=== PATIENT | female | born 1935 | race African-American/Black ===

== ENCOUNTER 2021-04-07 15:34 | Emergency (ER) | payer MEDICARE, MEDICAID, SELFPAY ==
[2021-04-07] VITALS (18 sets, daily range): BP systolic 118–173; BP diastolic 77–104; PULSE 58–91; RESP 11–22; TEMP 36.4; O2SAT 95–100
--- NOTE | ~2021-04-07 | XR_ITS ---
XR chest 1V portable 04/07/2021 17:47 Indication: Weakness. Procedure: AP portable chest Comparison: No prior studies for comparison. Findings: There is right paratracheal soft tissue with smooth curvilinear lateral margin, likely vasc ular ectasia. There is atherosclerosis and ectasia of the thoracic aorta. Mild cardiomegaly. No focal air space disease, pulmonary edema, pleural effusion or suspected pneumothorax. Impression: 1: No acute cardiopulmonary disease. Reviewed, dictated and finalized at location A. Impression: 1: No acute cardiopulmonary disease.
--- NOTE | 2021-04-07 15:40 | ECG_ITS ---
Measurements Intervals [place] Rate: 63 P: 85 WI: 235 QRS: -29 QRSD: 79 T: 55 QT: 417 QTc: 428 Interpretive Statements SINUS RHYTHM WITH MARKED SINUS ARRHYTHMIA WITH FIRST DEGREE AV BLOCK NON-CONDUCTED PREMATURE ATRIAL COMPLEXES BASELINE ARTIFACT- I, II, III, AVR, AVL ABNORMAL ECG Electronically Signed On 04-07-2021 16:48:43 CDT by Abel Jernigan D.O.
[2021-04-07 17:11] LABS: Basophils Percent Auto 0.7 % (0.2-1.2); Eosinophils Absolute Auto 0.1 K/mm3 (0-0.3); Eosinophils Percent Auto 3.2 % (0-4.4); Hematocrit 41.3 % (37.0-47.0); Hemoglobin 12.9 g/dL (12.0-15.0); Lymphocytes Absolute Auto 2.32 K/mm3 (0.9-3.2); Lymphocytes Percent Auto 57.4 % (18.3-44.2); Mean Corpuscular HGB Conc 31.2 g/dl (32-36); Mean Corpuscular Hemoglobin 27.6 pg (26-34); Mean Corpuscular Volume 88.2 fl (80-100); Mean Platelet Volume 9.7 fl (7.4-10.4); Monocytes Absolute Auto 0.3 K/mm3 (0.1-0.6); Monocytes Percent Auto 7.2 % (2.6-8.5); Neutrophils Absolute Auto 1.3 K/mm3 (1.3-6.7); Neutrophils Percent Auto 31.5 % (45.5-73.1); Platelet Count Result 289 k/mm3 (150-375); Red Blood Count 4.68 M/mm3 (4.2-5.4)
[2021-04-07 17:30] LABS: Alanine Aminotransferase 12 U/L (4-35); Albumin Level 4.2 g/dL (3.5-5.1); Alkaline Phosphatase 132 U/L (38-126); Anion Gap 9 mmol/L (8-16); Aspartate Amino Transferase 20 U/L (14-36); Bilirubin,Total 0.7 mg/dL (0.2-1.3); Blood Urea Nitrogen 14 mg/dL (7-17); Calcium 9.7 mg/dL (8.4-10.2); Carbon Dioxide 29 mmol/L (22-30); Chloride 103 mmol/L (98-107); Estimated Glomerular Filt Rate > 60; Glucose 82 mg/dL (65-110); Potassium 3.9 mmol/L (3.4-5.0); Sodium 141 mmol/L (137-145)
[2021-04-07 18:00] LABS: Add Urine Microscopic? YES; Appearance Urine Clear (Clear); Bilirubin Urine Negative (Negative); Blood Urine Negative (Negative); Color Urine Yellow (Yellow); Glucose Urine UA Negative (Negative); Ketones Urine Trace mg/dL (Negative); Leukocyte Esterase Ur Negative LEU/UL (Negative); Mucus Urine Rare /lpf; Nitrate Urine Negative (Negative); Protein Urine Negative (Negative); Specific Grav Ur 1.016 (1.001-1.035); Squamous Epithelial Cell Urine Rare /hpf (Few)
--- NOTE | 2021-04-07 18:57 | ED.GENADULT ---
HPI - General Adult General Chief complaint: Syncope Stated complaint: syncope Time Seen by Provider: 04/07/21 15:57 History of Present Illness HPI narrative: Patient is an 85-year-old female who presents ER with weakness and near syncope. Patient has dementia and is alert and oriented x1 at baseline. She follows commands. No reports of trauma or injury from the longterm. Review of Systems Review of Systems: ROS unobtainable: Yes unobtainable due to mental status PMFSH Past Medical History Medical History (Updated 04/07/21 @ 19:19 by Jagjit Dill MD) Dementia Depressive disorder Hyperlipidemia Type 2 diabetes mellitus Surgical History Surgical History (Updated 04/07/21 @ 19:05 by Jagjit Dill MD) Surgical history unknown Social History Social History (Updated 04/07/21 @ 19:06 by Jagjit Dill MD) Smoking status: Unknown if ever smoked Alcohol intake: never Exam Narrative: GENERAL: Chronically ill-appearing, well-nourished, and in no acute distress. HEAD: Normocephalic, atraumatic. EYES: PERRL and EOMI. ENT: Mucous membranes moist. CHEST: Clear to auscultation. No respiratory distress. HEART: Regular rate and rhythm. Normal peripheral pulses. ABDOMEN: Soft, nontender, nondistended. EXTREMITIES: Normal range of motion. No edema. SKIN: Warm, dry, no rash. NEURO: Cranial nerves II through XII intact. No upper or lower extremity drift. Alert and oriented x1. Course Course Emergency Course: Unremarkable evaluation. Patient able to ambulate without issue. Discharge back to longterm. Vital Signs Vital signs: Vital Signs Temperature 97.5 F L 04/07/21 15:38 Pulse Rate 58 L 04/07/21 15:38 Respiratory Rate 12 04/07/21 15:38 Blood Pressure 173/91 H 04/07/21 15:38 Pulse Oximetry 95 04/07/21 15:38 Temperature 97.5 F L 04/07/21 15:38 Pulse Rate 71 04/07/21 17:00 Respiratory Rate 16 04/07/21 17:00 Blood Pressure 139/84 04/07/21 16:17 Pulse Oximetry 99 04/07/21 16:17 Medical Decision Making Vital Signs Vital Signs: Vital Signs Temperature 97.5 F L 04/07/21 15:38 Pulse Rate 58 L 04/07/21 15:38 Respiratory Rate 12 04/07/21 15:38 Blood Pressure 173/91 H 04/07/21 15:38 Pulse Oximetry 95 04/07/21 15:38 Temperature 97.5 F L 04/07/21 15:38 Pulse Rate 71 04/07/21 17:00 Respiratory Rate 16 04/07/21 17:00 Blood Pressure 139/84 04/07/21 16:17 Pulse Oximetry 99 04/07/21 16:17 Lab Data Result diagrams: 04/07/21 17:05 04/07/21 17:05 Labs: Lab Results 04/07/21 04/07/21 04/07/21 Range/Units 17:05 17:05 17:41 WBC 4.0 L (4.5-10.0) K/mm3 RBC 4.68 (4.2-5.4) M/mm3 Hgb 12.9 (12.0-15.0) g/dL Hct 41.3 (37.0-47.0) % MCV 88.2 (80-100) fl MCH 27.6 (26-34) pg MCHC 31.2 L (32-36) g/dl RDW 15.0 H (11.5-14.5) % Plt Count 289 (150-375) k/mm3 MPV 9.7 (7.4-10.4) fl Immature Gran % (Auto) 0.0 (0-0.5) % Neut % (Auto) 31.5 L (45.5-73.1) % Lymph % (Auto) 57.4 H (18.3-44.2) % [place] % (Auto) 7.2 (2.6-8.5) % Eos % (Auto) 3.2 (0-4.4) % Baso % (Auto) 0.7 (0.2-1.2) % Lymph # (Auto) 2.32 (0.9-3.2) K/mm3 [place] # (Auto) 0.3 (0.1-0.6) K/mm3 Eos # (Auto) 0.1 (0-0.3) K/mm3 Baso # (Auto) 0.0 (0.0-0.1) K/mm3 Abs Immat Gran (auto) 0.00 (0.00-0.031) K/mm3 Absolute Neuts (auto) 1.3 (1.3-6.7) K/mm3 Absolute Nucleated RBC 0.0 (0.0-0.012) K/mm3 Nucleated RBC % 0.0 (0.0-0.2) % Sodium 141 (137-145) mmol/L Potassium 3.9 (3.4-5.0) mmol/L Chloride 103 (98-107) mmol/L Carbon Dioxide 29 (22-30) mmol/L Anion Gap 9 (8-16) mmol/L BUN 14 (7-17) mg/dL Creatinine 0.90 (0.7-1.0) mg/dL Estim Creat Clear Calc Not Reportable Estimated GFR > 60 (59 - ) Glucose 82 (65-110) mg/dL Calcium 9.7 (8.4-10.2) mg/dL Total Bilirubin 0.7 (0.2-1.3) mg/dL AST 20 (14-36) U/L ALT
--- NOTE | 2021-04-07 19:44 | PC.NURSE ---
made contact with [facility] to transfer pt to [facility] in [place]. eta [phone]
== END 2021-04-07 22:15 ==
PROVIDERS: Emergency Provider Emergency Medicine
DX: R53.1 Weakness (principal); F03.90 Unspecified dementia, unspecified severity, without behavioral disturbance, psychotic disturbance, mood disturbance, and anxiety; E78.5 Hyperlipidemia, unspecified; E11.9 Type 2 diabetes mellitus without complications; R94.31 Abnormal electrocardiogram [ECG] [EKG]
CPT/HCPCS: 36415; 51701; 71045; 80053; 81001; 85025; 93005; 99283

== ENCOUNTER 2021-04-12 12:03 | Inpatient (IN) | payer MEDICARE, MEDICAID, SELFPAY ==
[2021-04-12] VITALS (13 sets, daily range): BP systolic 119–154; BP diastolic 70–88; PULSE 83–90; RESP 14–20; TEMP 36.3–37.1; O2SAT 96–99
--- NOTE | ~2021-04-12 | CT_ITS ---
EXAMINATION: CT brain wo con EXAM DATE: 04/12/2021 14:55 INDICATION: Altered mental status, garbled speech. TECHNIQUE: Spiral CT of the head was performed without contrast. Axial, coronal and sagittal images were reviewed. The dose-length product (DLP) for this examination was 832.33 mGy-cm. Vertex was scan fei twice. The exposure was tailored according to patient size, and iterative reconstruction (ASIR) w as used as additional dose reduction technique. There is no prior study for comparison. FINDINGS: Study is limited due to patient motion. There is moderate microangiopathy and cerebral atro phy. No acute intracranial hemorrhage, obstructive hydrocephalus, extra-axial collections or brain ma ss identified. No definite acute infarction. Sinuses and mastoid air cells are well aerated. IMPRESSION: Limited exam demonstrating age-related intracranial findings. Reviewed, dictated and finalized at location A.
--- NOTE | ~2021-04-12 | XR_ITS ---
EXAMINATION: XR chest 1V portable EXAM DATE: 04/12/2021 12:34 INDICATION: Altered mental status, weakness, no appetite. TECHNIQUE: Portable AP frontal chest x-ray was obtained. Comparison is made to prior examination from 04/07/2021. FINDINGS: The lungs are clear. There are no pleural effusions. Cardiac silhouette is prominent but magnified on this AP technique. There is no pneumothorax suspected. The bones and soft tissues are unremarkable. There is tortuosity of the aorta. Possible sliding gastroesophageal hiatal hernia. IMPRESSION: No acute cardiopulmonary findings. Reviewed, dictated and finalized at location A.
--- NOTE | ~2021-04-12 | XR_ITS ---
EXAMINATION: XR abdomen/kub 1V INDICATION: Left ureteral stone TECHNIQUE: Supine views of the abdomen were obtained on 2 radiographs. COMPARISON: CT from yesterday FINDINGS: A 1.8 cm stone projects in the expected location of the left renal pelvis. There is a 2 mm stone in the left kidney lower pole. There is a 3 mm stone in the upper pole of the right kidney. No additional urolithiasis is identified. The bowel gas pattern is normal. A moderate volume of stool is noted in the rectum. There is mild osteoarthritis of the hips. IMPRESSION: 1. 1.8 cm stone in the left renal pelvis. 2. Bilateral nephrolithiasis. Reviewed, dictated and finalized at location B.
--- NOTE | ~2021-04-12 | CT_ITS ---
EXAMINATION: CT abdomen pelvis wo con DATE: 04/12/2021 23:01 INDICATION: Abdominal and flank pain, hematuria TECHNIQUE: Computed tomography (CT) of the abdomen and pelvis was performed without intravenous contr ast. Automated exposure control and iterative reconstruction technique were employed. Exam dose: 318 .88 mGy-cm total exam DLP. COMPARISON: None. FINDINGS: Discoid atelectasis and/or scarring in the lower lung rocha, most prominent in the lower l obes. Mild cardiomegaly. No pericardial or pleural effusion. No hepatic space-occupying mass lesion is evident on this limited noncontrast examination with arms o verlying the abdomen and pelvis, detracting from image quality. The gallbladder is present. No gallbl adder wall thickening or bile duct dilatation is evident. Splenic size is within normal limits. There appears to be up to 2.5 cm left adrenal mass lesion. No apparent right adrenal mass lesion. Approximately 2.7 x 4.7 mm nonobstructing upper pole right renal calculus. Approximately 4 x 5 mm nonobstructing lower pole left renal calculus. There is severe left hydronephrosis and left pelviectasis and proximal ureterectasis secondary to an approximately 8.8 x 11.9 x 17 mm proximal left ureteral calculus (1318 Hounsfield units). No right ureteral calculus or right-sided hydroureteronephrosis. There is prominent diffuse thickening of the urinary bladder wall. Cystitis is not excluded. Prominent rectosigmoid fecal impaction, measuring up to 9.4 cm transverse and 8 cm AP dimension. Diverticulosis of the colon; no CT evidence of diverticulitis. No bowel obstruction or intraperitonea l free air is evident. Up to approximately 3.4 cm infrarenal abdominal aortic aneurysm and calcification and ectasia of the common iliac arteries. No intraperitoneal or retroperitoneal or pelvic mass lesion or adenopathy or ascites is noted otherwi se. Severe degenerative changes of the thoracic and lumbar spine. Grade 1 anterolisthesis at L4-5 due to degenerative change at the apophyseal joints. IMPRESSION: Huge 8.8 x 11.9 x 17 mm proximal left ureteral calculus with severe left pelviectasis an d hydronephrosis Bilateral nonobstructive nephrolithiasis Diffuse thickening and urinary bladder wall; consider cystitis Up to 3.4 cm infrarenal abdominal aortic aneurysm Diverticulosis of the colon Approximately 2.5 cm left adrenal mass lesion is suspected Rectosigmoid fecal impaction Reviewed, dictated and finalized at Location A. Reviewed, dictated and finalized at location A. IMPRESSION: Huge 8.8 x 11.9 x 17 mm proximal left ureteral calculus with sever e left pelviectasis and hydronephrosis Bilateral nonobstructive nephrolithiasis Diffuse thickening and urinary bladder wall; consider cystitis Up to 3.4 cm infrarenal abdominal aortic aneurysm Diverticulosis of the colon Approximately 2.5 cm left adrenal mass lesion is suspected Rectosigmoid fecal impaction
--- NOTE | ~2021-04-12 | XR_ITS ---
EXAMINATION: XR retrograde pyelo w/stent LT EXAM DATE: 04/14/2021 16:03 INDICATION: Left-sided retrograde pyelogram, stent placement. TECHNIQUE: Fluoroscopy used during XR retrograde pyelo w/stent LT performed by Dr. Robert Alvarez MD, urologist. The radiologist Andrew Richards M.D. dictating this report of the image(s) available wa s not present for the procedure. Total fluoroscopic time of 120 seconds The DAP for this procedure was 1.1 mGym2. A total of 66 images sent to PACS from the exam. Cine run(s) available for review. Correlation was made with CT abdomen pelvis 04/12/2021. 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 Upon retrograde injection, there is severe left hydronephrosis demonstrated the left ureter is tortuous. A double-J ureteral stent was placed. Correlate with procedure note. IMPRESSION: Large left mid ureteral stone, severe hydronephrosis. Stent in position. Reviewed, dictated and finalized at location A. IMPRESSION: Large left mid ureteral stone, severe hydronephrosis. Stent in posi tion.
--- NOTE | 2021-04-12 12:17 | ECG_ITS ---
Measurements Intervals [place] Rate: 90 P: 80 MO: 200 QRS: -28 QRSD: 77 T: 77 QT: 340 QTc: 418 Interpretive Statements SINUS RHYTHM BORDERLINE T WAVE ABNORMALITY- HIGH LATERAL LEADS BASELINE ARTIFACT- I, III, AVL, AVF, V2 BORDERLINE ECG Electronically Signed On 04-12-2021 13:36:00 CDT by Abel Jernigan D.O.
--- NOTE | 2021-04-12 12:58 | ED.AMS ---
HPI - Altered Mental Status General Chief Complaint: Altered Mental Status Stated Complaint: AMS Time Seen by Provider: 04/12/21 12:09 Source: EMS, RN notes reviewed and old records reviewed Mode of arrival: EMS Limitations: dementia History of Present Illness HPI narrative: This is an 85 year old female with history dementia who presents from alf for altered mental status. EMS states they were called because patient is not eating , drinking or taking her medication for 2-3 days. It is reported that patient is normally alert and oriented to person. EMS states patient seems to be her baseline. EMS also states on arrival they initially were going to keep patient at alf for antibiotics but family requested that patient be transferred. Related Data Allergies Allergy/AdvReac Type Severity Reaction Status Date / Time hydrochlorothiazide Allergy Unknown Verified 04/12/21 17:47 meperidine Allergy Unknown Verified 04/12/21 17:48 moxifloxacin Allergy Unknown Verified 04/12/21 17:48 oxycodone Allergy Unknown Verified 04/12/21 17:49 penicillamine Allergy Unknown Verified 04/12/21 17:49 Penicillins Allergy Unknown Verified 04/12/21 17:48 Review of Systems Review of Systems: ROS unobtainable: Yes unobtainable due to mental status PMFSH Past Medical History Medical History (Updated 04/12/21 @ 20:36 by Vangie Sneed MD) Dementia Depressive disorder Hyperlipidemia Type 2 diabetes mellitus Surgical History Surgical History (Updated 04/07/21 @ 19:05 by Jagjit Dill MD) Surgical history unknown Social History Social History (Updated 04/07/21 @ 19:06 by Jagjit Dill MD) Smoking status: Unknown if ever smoked Alcohol intake: never Exam Const: General: no acute distress and alert Nutritional Appearance: thin Other: patient responded to name, mumbling speech, extremely dry mouth HENMT: Mouth: Yes dry mucous membranes Eyes: Pupils: Equal, round and reactive pupils present EOM: EOMs intact bilaterally Resp: Effort & Inspection: normal respiratory effort and no retractions Auscultation: clear to auscultation bilaterally Cardio: Rate: regular rate Heart sounds: Murmur heart sound present GI: GI Palp: Yes Soft to palpation, No Tenderness to palpation present (GI) and No Guarding due to palpation present (GI) Auscultation: normal bowel sounds Neuro: General: moves all extremities Extrem: General: no pedal edema Psych: Affect: normal affect Course Reevaluation(s) Reevaluation #1: Patient found to be extremely dehydrated with UTI And PINEDA. She has been given IVF and IV antibiotics. Per old records patient is ambulatory. Today she has been alert and responds to her name. I discussed case with Bridget PIERRE on for hospitalist and she accepts patient to service. Date: 04/12/21 Time: 17:30 Vital Signs Vital signs: Vital Signs Temperature 98.4 F 04/12/21 12:21 Pulse Rate 87 04/12/21 12:21 Respiratory Rate 19 04/12/21 12:21 Blood Pressure 122/75 04/12/21 12:21 Pulse Oximetry 96 04/12/21 12:21 Temperature 97.3 F L 04/12/21 18:29 Pulse Rate 89 04/12/21 19:15 Respiratory Rate 17 04/12/21 19:15 Blood Pressure 154/82 H 04/12/21 19:15 Pulse Oximetry 99 04/12/21 19:15 MDM - Altered Mental Status Differential Diagnosis Differential diagnosis: Likely altered mental status, delirium, dementia, hyponatremia, subarachnoid hemorrhage and sepsis Medical Records Attestation: I reviewed the patient's medical records. Lab Data Attestation: I reviewed the patient's lab results. Result diagrams: 04/12/21 12:36 04/12/21 16:04 Labs: Lab Results 04/12/21 04/12/21 04/12/21 Range/Units 12:36 12:36 13:24 WBC 7.4 (4.5-10.0) K/mm3 RBC 4.70 (4.2-5.4) M/mm3 Hgb 12.9 (12.0-15.0) g/dL Hct 39.6 (37.0-47.0) % MCV 84.3 (80-100) fl MCH 27.4 (26-34) pg MCHC 32.6 (32-36)
[2021-04-12 13:04] LABS: INR 1.1
[2021-04-12 13:05] LABS: Partial Thromboplastin Time 35.9 SECONDS (22.3-36.8)
[2021-04-12 13:07] LABS: Basophils Percent Auto 0.1 % (0.2-1.2); Hematocrit 39.6 % (37.0-47.0); Hemoglobin 12.9 g/dL (12.0-15.0); Immature Granulocyte Absolute 0.03 K/mm3 (0.00-0.031); Immature Granulocyte Percent A 0.4 % (0-0.5); Lymphocytes Absolute Auto 1.04 K/mm3 (0.9-3.2); Lymphocytes Percent Auto 14.1 % (18.3-44.2); Mean Corpuscular HGB Conc 32.6 g/dl (32-36); Mean Corpuscular Hemoglobin 27.4 pg (26-34); Mean Corpuscular Volume 84.3 fl (80-100); Mean Platelet Volume 10.2 fl (7.4-10.4); Monocytes Absolute Auto 0.9 K/mm3 (0.1-0.6); Monocytes Percent Auto 11.5 % (2.6-8.5); Neutrophils Absolute Auto 5.5 K/mm3 (1.3-6.7); Neutrophils Percent Auto 73.9 % (45.5-73.1); Platelet Count Result 267 k/mm3 (150-375); Red Cell Distribution Width 14.7 % (11.5-14.5); White Blood Count 7.4 K/mm3 (4.5-10.0)
[2021-04-12] MEDS: SODIUM CHLORIDE 0.9% IV 1,000 ML 999 ML IV CONT ×2 (13:29→17:55)
[2021-04-12 14:19] LABS: Mucus Urine Few /lpf; RBC Urine >75 /hpf (0-2); Squamous Epithelial Cell Urine Moderate /hpf (Few); WBC Clumps Urine Present /HPF; WBC Urine >75 /hpf
[2021-04-12 14:22] LABS: Add Urine Microscopic? YES; Appearance Urine Turbid (Clear); Bilirubin Urine Negative (Negative); Blood Urine 1+ (Negative); Color Urine Yellow (Yellow); Glucose Urine UA Negative (Negative); Ketones Urine Negative (Negative); Leukocyte Esterase Ur 2+ LEU/UL (Negative); Nitrate Urine Negative (Negative); Protein Urine 2+ mg/dL (Negative); Urobilinogen Urine Negative mg/dL (<2.0)
[2021-04-12 16:52] LABS: Alanine Aminotransferase 13 U/L (4-35); Albumin Level 3.7 g/dL (3.5-5.1); Alkaline Phosphatase 104 U/L (38-126); Anion Gap 7 mmol/L (8-16); Aspartate Amino Transferase 21 U/L (14-36); Bilirubin,Total 0.9 mg/dL (0.2-1.3); Blood Urea Nitrogen 31 mg/dL (7-17); Calcium 9.4 mg/dL (8.4-10.2); Carbon Dioxide 29 mmol/L (22-30); Chloride 109 mmol/L (98-107); Estimated CRCL calculation 19 ml/min; Estimated Glomerular Filt Rate 44; Glucose 121 mg/dL (65-110); Magnesium 2.3 mg/dL (1.6-2.3); Potassium 4.1 mmol/L (3.4-5.0); Sodium 145 mmol/L (137-145)
--- NOTE | 2021-04-12 19:40 | ADMGEN ---
This patient, Sridevi Mckinney, was admitted to Medical Room 346-01. Patient/family oriented to hospital policies and general routines including ID bracelet, bed and alarms, visiting hours, pain management, procedures, bathroom and other care routines, personal items, smoking policy, room service/diet, and visiting hours. Information on how to activate the Rapid Response Team has been discussed. Patient/Family are encouraged to report perceived risks to care and to ask questions if they do not understand what they are told or what they should do.
[2021-04-12] MEDS: SODIUM CHLORIDE 0.9% IV 1,000 ML 125 ML IV CONT (19:52)
--- NOTE | 2021-04-12 21:00 | PM.IMHP ---
H&P: HPI History of Present Illness Date/Time: 04/12/21 21:00 Chief Complaint: Not eating or drinking for 2 days. Narrative: This is a an 85-year-old female with dementia, hypertension, diabetes, and hypothyroidism who presented to the emergency department earlier today via EMS from [facility] for evaluation as she has not been eating or drinking for the past 2 days. The patient typically goes to [facility] and I have not been able to reach her emergency contacts and as such the following history is limited to a review of her electronic medical records and paperwork that accompanied her. It is noted that the patient was seen in the emergency department this facility last week on 04/07/2021 for evaluation of weakness and near syncope. Her workup was essentially normal and she was discharged back to the snf. Unfortunately her condition has continued to decline and she has not been eating or drinking. She has become increasingly more confused as well and is really not even communicating. She is quite dehydrated on exam and she now has evidence of urinary tract infection as well as increasing BUN and creatinine. At the time my evaluation she is alert and she does attempt to answer some questions however she mumbles and I am not able to understand what she is saying. Review of Systems Review of Systems: Unable to assess given current clinical condition. ON LICENSE OF [facility] Past Medical History Medical History (Updated 04/12/21 @ 22:27 by Bridget Anderson PA-C) Anxiety Asthma Dementia Depressive disorder History of seizure History of thyrotoxicosis Hyperlipidemia Hypertension Hypothyroidism Type 2 diabetes mellitus Vitamin D deficiency Surgical History Surgical History Surgical history unknown Family History Family History Other Unknown family medical history Social History Social History (Updated 04/12/21 @ 22:21 by Bridget Anderson PA-C) Social History: Power of employee benefits attorney: Porter Bettencourt, friend. Code status: Full code. Smoking status: Unknown if ever smoked Alcohol intake: unknown Substance use: unknown Additional living arrangements comments: The patient is currently at [facility]. Meds Home Medications and Allergies Home Medications Medication Instructions Recorded Confirmed Type Lactobacillus acidophilus 1 cap PO BID 04/12/21 04/12/21 History acetaminophen 650 mg PO Q6H PRN 04/12/21 04/12/21 History albuterol sulfate [Ventolin HFA] 2 puff INHALATION Q4-6H PRN 04/12/21 04/12/21 History amlodipine 2.5 mg PO DAILY 04/12/21 04/12/21 History aspirin 81 mg PO DAILY 04/12/21 04/12/21 History atorvastatin 10 mg PO HS 04/12/21 04/12/21 History buspirone 7.5 mg PO BID 04/12/21 04/12/21 History cholecalciferol (vitamin D3) 2,000 unit PO DAILY 04/12/21 04/12/21 History [Vitamin D3] cyanocobalamin (vitamin B-12) 1,000 mcg PO DAILY 04/12/21 04/12/21 History docusate sodium 100 mg PO BID 04/12/21 04/12/21 History donepezil [Aricept] 10 mg PO HS 04/12/21 04/12/21 History famotidine 20 mg PO DAILY 04/12/21 04/12/21 History ferrous sulfate 325 mg PO BID 04/12/21 04/12/21 History hydrocodone-acetaminophen 1 tablet PO TID PRN 04/12/21 04/12/21 History methimazole 10 mg PO DAILY 04/12/21 04/12/21 History ondansetron HCl [Zofran] 4 mg PO Q6H PRN 04/12/21 04/12/21 History quetiapine 12.5 mg PO BID 04/12/21 04/12/21 History Allergies Allergy/AdvReac Type Severity Reaction Status Date / Time hydrochlorothiazide Allergy Unknown Verified 04/12/21 21:15 meperidine Allergy Unknown Verified 04/12/21 21:15 moxifloxacin Allergy Unknown Verified 04/12/21 21:15 oxycodone Allergy Unknown Verified 04/12/21 21:15 penicillamine Allergy Unknown Verified 04/12/21 21:15 Penicillins Allergy Unknown Verified 04/12/21 21:15 Vital Signs Vital Signs - 24 hr 04/12/21 12:21 11
[2021-04-12 22:05] LABS: Glucose Point of Care 103 mg/dl (65-105)
[2021-04-12 22:47] LABS: Creatine Kinase 54 U/L (30-135)
[2021-04-12 23:14] LABS: Free T4 Free Thyroxine 1.22 ng/mL (0.78-2.19)
[2021-04-13] VITALS (7 sets, daily range): BP systolic 107–139; BP diastolic 46–98; PULSE 70–75; RESP 16–20; TEMP 36.1–37.1; O2SAT 94–100; BMI 22.6
[2021-04-13 05:50] LABS: Alanine Aminotransferase 12 U/L (4-35); Albumin Level 2.9 g/dL (3.5-5.1); Alkaline Phosphatase 85 U/L (38-126); Anion Gap 8 mmol/L (8-16); Aspartate Amino Transferase 20 U/L (14-36); Bilirubin,Total 0.6 mg/dL (0.2-1.3); Blood Urea Nitrogen 25 mg/dL (7-17); Calcium 8.9 mg/dL (8.4-10.2); Carbon Dioxide 23 mmol/L (22-30); Chloride 116 mmol/L (98-107); Estimated CRCL calculation 30 ml/min; Estimated Glomerular Filt Rate > 60; Glucose 106 mg/dL (65-110); Potassium 3.9 mmol/L (3.4-5.0); Sodium 147 mmol/L (137-145)
[2021-04-13 05:53] LABS: Basophils Percent Auto 0.4 % (0.2-1.2); Eosinophils Percent Auto 0.2 % (0-4.4); Hematocrit 36.6 % (37.0-47.0); Hemoglobin 11.1 g/dL (12.0-15.0); Immature Granulocyte Absolute 0.02 K/mm3 (0.00-0.031); Immature Granulocyte Percent A 0.4 % (0-0.5); Lymphocytes Absolute Auto 0.86 K/mm3 (0.9-3.2); Lymphocytes Percent Auto 17.8 % (18.3-44.2); Mean Corpuscular HGB Conc 30.3 g/dl (32-36); Mean Corpuscular Hemoglobin 27.6 pg (26-34); Mean Platelet Volume 10.3 fl (7.4-10.4); Monocytes Absolute Auto 0.6 K/mm3 (0.1-0.6); Neutrophils Absolute Auto 3.3 K/mm3 (1.3-6.7); Neutrophils Percent Auto 69.2 % (45.5-73.1); Platelet Count Result 236 k/mm3 (150-375); Red Blood Count 4.02 M/mm3 (4.2-5.4); Red Cell Distribution Width 15.2 % (11.5-14.5); White Blood Count 4.8 K/mm3 (4.5-10.0)
[2021-04-13] MEDS: SODIUM CHLORIDE 0.9% IV 1,000 ML 75 ML IV CONT ×2 (06:35→17:58)
[2021-04-13 08:08] LABS: Glucose Point of Care 92 mg/dl (65-105)
--- NOTE | 2021-04-13 09:25 | PM.IMPN ---
Progress Note: A&P Assessment and Plan (1) Acute metabolic encephalopathy: Code(s): G93.41 - Metabolic encephalopathy Status: Acute Assessment and Plan: reported that she has not been eating or drinking Been more confused than baseline UA suspicious for UTI Turbid, 2+ protein, 1+ blood, leukocyte esterase 2+, WBC >75, WBC in clumps Ceftriaxone 1gm q24hr Strict I&Os Urinary catheter Urine culture pending Abd/Pel CT found a stone in the left pelviectasis with diffuse bladder wall thickening. (2) Urinary tract infection: Code(s): N39.0 - Urinary tract infection, site not specified Status: Acute Assessment and Plan: UA suspicious for UTI Turbid, 2+ protein, 1+ blood, leukocyte esterase 2+, WBC >75, WBC in clumps Ceftriaxone 1gm q24hr Strict I&Os Urinary catheter Urine culture pending Abd/Pel CT found a stone in the left pelviectasis with diffuse bladder wall thickening. (3) Hydronephrosis: Code(s): N13.30 - Unspecified hydronephrosis Status: Acute Assessment and Plan: Abd/Pel CT found: Huge 8.8 x 11.9 x 17 mm proximal left ureteral calculus with severe left pelviectasis and hydronephrosis, Diffuse bladder wall thickening Urinary catheter Urology consult Thank you for your help Ceftriaxone (4) Acute kidney injury: Code(s): N17.9 - Acute kidney failure, unspecified Status: Acute Assessment and Plan: BUN/Cr elevated from baseline Probably from poor PO intake and dehydration Related to cystitis and hydronephrosis Trend labs Fluids for hydration (5) Dehydration: Code(s): E86.0 - Dehydration Status: Acute Assessment and Plan: See above (6) Hypertension: Code(s): I10 - Essential (primary) hypertension Status: Acute Assessment and Plan: BP stable at 139/98 Continue home amlodipine 2.5mg PO daily Trend BP Adjust medications as needed (7) Dementia: Code(s): F03.90 - Unspecified dementia without behavioral disturbance Status: Acute Assessment and Plan: Continue home medications (8) Thyroid disorder: Code(s): E07.9 - Disorder of thyroid, unspecified Status: Acute Assessment and Plan: TSH 1.130 Free T4 1.22 Time Spent With Patient Time with patient: Greater than 35 minutes Subjective Date/time seen: 04/13/21924 Interval history: Date/Time: 04/12/21 21:00 Narrative: This is a an 85-year-old female with dementia, hypertension, diabetes, and hypothyroidism who presented to the emergency department earlier today via EMS from [facility] for evaluation as she has not been eating or drinking for the past 2 days. The patient typically goes to [facility] and I have not been able to reach her emergency contacts and as such the following history is limited to a review of her electronic medical records and paperwork that accompanied her. It is noted that the patient was seen in the emergency department this facility last week on 04/07/2021 for evaluation of weakness and near syncope. Her workup was essentially normal and [facility] Unfortunately her condition has continued to decline and she has not been eating or drinking. She has become increasingly more confused as well and is really not even communicating. She is quite dehydrated on exam and she now has evidence of urinary tract infection as well as increasing BUN and creatinine. At the time my evaluation she is alert and she does attempt to answer some questions however she mumbles and I am not able to understand what she is saying. Date/Time 04/13/21924 Patient seems to be very sweet. She talks very low and it is really hard to understand her. I did kind of make out that she is having some flank pain bilaterally, along with urgency and frequency. She denied chest pa
--- NOTE | 2021-04-13 09:25 | P.PNIM_ITS ---
Progress Note: A&P Assessment and Plan (1) Acute metabolic encephalopathy: Code(s): G93.41 - Metabolic encephalopathy Status: Acute Assessment and Plan: * reported that she has not been eating or drinking * Been more confused than baseline * UA suspicious for UTI Turbid, 2+ protein, 1+ blood, leukocyte esterase 2+, WBC >75, WBC in clumps * Ceftriaxone 1gm q24hr * Strict I&Os * Urinary catheter * Urine culture pending * Abd/Pel CT found a stone in the left pelviectasis with diffuse bladder wall thickening. (2) Urinary tract infection: Code(s): N39.0 - Urinary tract infection, site not specified Status: Acute Assessment and Plan: * UA suspicious for UTI Turbid, 2+ protein, 1+ blood, leukocyte esterase 2+, WBC >75, WBC in clumps * Ceftriaxone 1gm q24hr * Strict I&Os * Urinary catheter * Urine culture pending * Abd/Pel CT found a stone in the left pelviectasis with diffuse bladder wall thickening. (3) Hydronephrosis: Code(s): N13.30 - Unspecified hydronephrosis Status: Acute Assessment and Plan: * Abd/Pel CT found: Huge 8.8 x 11.9 x 17 mm proximal left ureteral calculus with severe left pelviectasis and hydronephrosis, Diffuse bladder wall thickening * Urinary catheter * Urology consult Thank you for your help * Ceftriaxone (4) Acute kidney injury: Code(s): N17.9 - Acute kidney failure, unspecified Status: Acute Assessment and Plan: * BUN/Cr elevated from baseline * Probably from poor PO intake and dehydration * Related to cystitis and hydronephrosis * Trend labs * Fluids for hydration (5) Dehydration: Code(s): E86.0 - Dehydration Status: Acute Assessment and Plan: * See above (6) Hypertension: Code(s): I10 - Essential (primary) hypertension Status: Acute Assessment and Plan: * BP stable at 139/98 * Continue home amlodipine 2.5mg PO daily * Trend BP * Adjust medications as needed (7) Dementia: Code(s): F03.90 - Unspecified dementia without behavioral disturbance Status: Acute Assessment and Plan: * Continue home medications (8) Thyroid disorder: Code(s): E07.9 - Disorder of thyroid, unspecified Status: Acute Assessment and Plan: * TSH 1.130 * Free T4 1.22 Time Spent With Patient Time with patient: Greater than 35 minutes Subjective Date/time seen: 04/13/21 0925 Interval history: Date/Time: 04/12/21 21:00 Narrative: This is a an 85-year-old female with dementia, hypertension, diabetes, and hypothyroidism who presented to the emergency department earlier today via EMS from [facility] for evaluation as she has not been eating or drinking for the past 2 days. The patient typically goes to [facility] and I have not been able to reach her emergency contacts and as such the following history is limited to a review of her electronic medical records and paperwork that accompanied her. It is noted that the patient was seen in the emergency department this facility last week on 04/07/2021 for evaluation of weakness and near syncope. Her workup was essentially normal and she was discharged back to the senior living. Unfortunately her condition has continued to decline and she has not been eating or drinking. She has become increasingly more confused as we
--- NOTE | 2021-04-13 10:06 | PCSTNOTE ---
Please refer to the Bedside Swallow Evaluation in the EMR. Please note, silent aspiration cannot be ruled out at bedside.
[2021-04-13 11:44] LABS: Glucose Point of Care 85 mg/dl (65-105)
--- NOTE | 2021-04-13 14:30 | PC.NURSE ---
This nurse attempted to place a urinary catheter, patient was kicking her legs trying to grab at the nurse and catheter. This nurse notified Ramses the hospitalist and made him aware that it couldn't be placed at this time.
--- NOTE | 2021-04-13 16:28 | WPDURCON ---
Assessment and Plan Assessment and plan (1) Hydronephrosis: Code(s): N13.30 - Unspecified hydronephrosis Status: Acute Assessment and Plan: I had a long discussion with her son today we discussed the option of treating her infection and seeing how she responds, or taking her to the OR to place a stent for now, treat infection and then plan to do a left ESWL when her infection resolves. He elects the procedure. He will be giving oral consent. Obtain consent: Cystoscopy, left ureteroscopy with stent placement, left retrograde pyelogram. Plan to go to the OR tomorrow with Dr. Alvarez. Keep NPO after midnight. (2) Acute UTI: Code(s): N39.0 - Urinary tract infection, site not specified Status: Acute Assessment and Plan: Continue IV antibiotics and tailor to culture results. (3) Left ureteral stone: Code(s): N20.1 - Calculus of ureter Status: Acute Urology Consult Note HPI Date Seen: 04/13/21 Requesting Physician: Sinan Hazel MD Primary Care Provider: UNKNOWN,DOCTOR Consult Narrative Narrative: Sridevi Mckinney is a 85 year old female who presented to the ER yesterday with worsening weakness confusion and decreased responsiveness. Her WBC is 4.8, creatinine is 1.00, UA is positive for infection and a urine culture is pending. She is currently on IV ceftriaxone. We were consulted d/t chronic UTI's and a CT scan of the abdomen and pelvis that reveals an 8.8x11.9x17mm left proximal ureteral stone with severe hydro and bilateral non obstructive stones. She has no family at the bedside and is unable to be aroused or share any medical history. All information was obtained from her chart and a phone conversation with her son Valerie. He states she has gone to [place] from the [place] many times to be evaluated for chronic UTI's, but is sent back to the NH and then has more syncopal episodes with confusion and weakness and is then sent back to the ER for UTI treatment. No one has done a thorough evaluation of her chronic UTI's and he is concerned and wanted her to come here for further evaluation. He was thankful that we were able to find a source of infection. He states at baseline she is confused slightly, but does ambulate and have conversations with him. He takes her to the store with him from the [place] from time to time. Review of Systems Review of Systems: ROS unobtainable: Yes unobtainable due to medical condition and unobtainable due to mental status PMFSH Past Medical History Medical History Anxiety Asthma Dementia Depressive disorder History of seizure History of thyrotoxicosis Hyperlipidemia Hypertension Hypothyroidism Type 2 diabetes mellitus Vitamin D deficiency Surgical History Surgical History Surgical history unknown Family History Family History Other Unknown family medical history Social History Social History Social History: Power of office assistance: Porter Bettencourt, friend. Code status: Full code. Smoking status: Unknown if ever smoked Alcohol intake: unknown Substance use: unknown Additional living arrangements comments: The patient is currently at [facility]. Spiritual care concerns: No Meds Home Medications and Allergies Home Medications Medication Instructions Recorded Confirmed Type Lactobacillus acidophilus 1 cap PO BID 04/12/21 04/12/21 History acetaminophen 650 mg PO Q6H PRN 04/12/21 04/12/21 History albuterol sulfate [Ventolin HFA] 2 puff INHALATION Q4-6H PRN 04/12/21 04/12/21 History amlodipine 2.5 mg PO DAILY 04/12/21 04/12/21 History aspirin 81 mg PO DAILY 04/12/21 04/12/21 History atorvastatin 10 mg PO HS 04/12/21 04/12/21 History buspirone 7.5 mg PO BID 04/12/21 04/12/21 History
[2021-04-13 16:37] LABS: Glucose Point of Care 77 mg/dl (65-105)
[2021-04-13] MEDS: ENOXAPARIN 30 MG/0.3 ML SYRINGE SUB-Q (16:54)
[2021-04-13] MEDS: FERROUS SULFATE 324 MG TABLET PO (17:54)
[2021-04-13] MEDS: busPIRone HCL 2.5 MG TABLET 7.5 MG PO (17:55)
[2021-04-13] MEDS: DOCUSATE SODIUM 100 MG CAPSULE PO (17:55)
[2021-04-13] MEDS: ACIDOPHILUS/BULGARICUS CHEWABLE TABLET 1 TABLET PO (17:56)
--- NOTE | 2021-04-13 18:14 | PC.NURSE ---
Called patients facility to obtain POA paperwork so I can obtain the consent. Luz Elena stated the would fax over POA paperwork.
[2021-04-13] MEDS: ATORVASTATIN 10 MG TABLET PO (20:47)
[2021-04-13] MEDS: DONEPEZIL HCL 10 MG TABLET PO (20:47)
[2021-04-13] MEDS: QUEtiapine FUMARATE 12.5 MG TABLET PO (20:47)
[2021-04-13 21:06] LABS: Glucose Point of Care 114 mg/dl (65-105)
[2021-04-14] VITALS (10 sets, daily range): BP systolic 122–171; BP diastolic 50–89; PULSE 45–70; RESP 12–18; TEMP 36.1–37.6; O2SAT 96–100
[2021-04-14 06:21] LABS: Basophils Percent Auto 0.3 % (0.2-1.2); Eosinophils Percent Auto 0.8 % (0-4.4); Hematocrit 31.9 % (37.0-47.0); Hemoglobin 9.9 g/dL (12.0-15.0); Immature Granulocyte Absolute 0.02 K/mm3 (0.00-0.031); Immature Granulocyte Percent A 0.5 % (0-0.5); Lymphocytes Percent Auto 28.1 % (18.3-44.2); Mean Corpuscular Volume 87.2 fl (80-100); Mean Platelet Volume 10.4 fl (7.4-10.4); Monocytes Absolute Auto 0.6 K/mm3 (0.1-0.6); Monocytes Percent Auto 16.4 % (2.6-8.5); Neutrophils Absolute Auto 2.1 K/mm3 (1.3-6.7); Neutrophils Percent Auto 53.9 % (45.5-73.1); Platelet Count Result 234 k/mm3 (150-375); Red Blood Count 3.66 M/mm3 (4.2-5.4); Red Cell Distribution Width 15.5 % (11.5-14.5); White Blood Count 3.9 K/mm3 (4.5-10.0)
[2021-04-14 06:32] LABS: Alanine Aminotransferase 17 U/L (4-35); Albumin Level 2.9 g/dL (3.5-5.1); Alkaline Phosphatase 86 U/L (38-126); Anion Gap 6 mmol/L (8-16); Aspartate Amino Transferase 27 U/L (14-36); Bilirubin,Total 0.4 mg/dL (0.2-1.3); Blood Urea Nitrogen 20 mg/dL (7-17); Calcium 8.8 mg/dL (8.4-10.2); Carbon Dioxide 24 mmol/L (22-30); Chloride 118 mmol/L (98-107); Estimated CRCL calculation 33 ml/min; Estimated Glomerular Filt Rate > 60; Glucose 107 mg/dL (65-110); Magnesium 2.2 mg/dL (1.6-2.3); Potassium 3.7 mmol/L (3.4-5.0); Sodium 148 mmol/L (137-145)
[2021-04-14] MEDS: SODIUM CHLORIDE 0.9% IV 1,000 ML 75 ML IV CONT (06:49)
[2021-04-14 08:06] LABS: Glucose Point of Care 94 mg/dl (65-105)
[2021-04-14] MEDS: methiMAzole 10 MG TAB PO (08:33)
[2021-04-14] MEDS: busPIRone HCL 2.5 MG TABLET 7.5 MG PO ×2 (08:34→18:31)
[2021-04-14] MEDS: QUEtiapine FUMARATE 12.5 MG TABLET PO ×2 (08:34→20:15)
[2021-04-14] MEDS: amLODIPine BESYLATE 2.5 MG TABLET PO (08:34)
[2021-04-14] MEDS: ASPIRIN 81 MG CHEWABLE TABLET PO (08:34)
[2021-04-14] MEDS: FAMOTIDINE 20 MG TABLET PO (08:34)
[2021-04-14] MEDS: CHOLECALCIFEROL 1,000 UNITS TABLET 2000 UNITS PO (08:34)
[2021-04-14] MEDS: DOCUSATE SODIUM 100 MG CAPSULE PO ×2 (08:34→18:31)
[2021-04-14] MEDS: CYANOCOBALAMIN 1,000 MCG TABLET 1000 MCG PO (08:34)
[2021-04-14] MEDS: ACIDOPHILUS/BULGARICUS CHEWABLE TABLET 1 TABLET PO ×2 (08:34→18:32)
[2021-04-14] MEDS: FERROUS SULFATE 324 MG TABLET PO ×2 (08:35→18:31)
[2021-04-14 11:56] LABS: Glucose Point of Care 92 mg/dl (65-105)
--- NOTE | 2021-04-14 12:08 | PCPTNOTE ---
PT evaluation not performed, discussed pt with RN, pt having surgery for kidney stents in about 1 hour; HOLD PT evaluation;
--- NOTE | 2021-04-14 12:09 | PCOTNOTE ---
Per nurse report, pt. is get surgery today and should be held for evaluation until after surgery
--- NOTE | 2021-04-14 13:00 | PM.IMPN ---
Progress Note: A&P Assessment and Plan (1) Acute metabolic encephalopathy: Code(s): G93.41 - Metabolic encephalopathy Status: Acute Assessment and Plan: reported that she has not been eating or drinking Been more confused than baseline UA suspicious for UTI Turbid, 2+ protein, 1+ blood, leukocyte esterase 2+, WBC >75, WBC in clumps Ceftriaxone 1gm q24hr Strict I&Os Urinary catheter Urine culture still in progress Abd/Pel CT found a stone in the left pelviectasis with diffuse bladder wall thickening. (2) Urinary tract infection: Code(s): N39.0 - Urinary tract infection, site not specified Status: Acute Assessment and Plan: UA suspicious for UTI Turbid, 2+ protein, 1+ blood, leukocyte esterase 2+, WBC >75, WBC in clumps Ceftriaxone 1gm q24hr Strict I&Os Urinary catheter Urine culture pending Abd/Pel CT found a stone in the left pelviectasis with diffuse bladder wall thickening. (3) Hydronephrosis: Code(s): N13.30 - Unspecified hydronephrosis Status: Acute Assessment and Plan: Abd/Pel CT found: Huge 8.8 x 11.9 x 17 mm proximal left ureteral calculus with severe left pelviectasis and hydronephrosis, Diffuse bladder wall thickening Urinary catheter Urology consult Thank you for your help Ceftriaxone Scheduled for a cystoscopy with stent placement (4) Acute kidney injury: Code(s): N17.9 - Acute kidney failure, unspecified Status: Acute Assessment and Plan: BUN/Cr back to baseline Probably from poor PO intake and dehydration Related to cystitis and hydronephrosis Trend labs Fluids for hydration (5) Dehydration: Code(s): E86.0 - Dehydration Status: Acute Assessment and Plan: See above (6) Hypertension: Code(s): I10 - Essential (primary) hypertension Status: Acute Assessment and Plan: BP stable at 122/50 Continue home amlodipine 2.5mg PO daily Trend BP Adjust medications as needed (7) Dementia: Code(s): F03.90 - Unspecified dementia without behavioral disturbance Status: Acute Assessment and Plan: Continue home medications (8) Thyroid disorder: Code(s): E07.9 - Disorder of thyroid, unspecified Status: Acute Assessment and Plan: TSH 1.130 Free T4 1.22 Time Spent With Patient Time with patient: Greater than 35 minutes Subjective Date/time seen: 04/14/21 13:00 Interval history: Date/Time: 04/12/21 21:00 Narrative: This is a an 85-year-old female with dementia, hypertension, diabetes, and hypothyroidism who presented to the emergency department earlier today via EMS from [facility] for evaluation as she has not been eating or drinking for the past 2 days. The patient typically goes to [facility] and I have not been able to reach her emergency contacts and as such the following history is limited to a review of her electronic medical records and paperwork that accompanied her. It is noted that the patient was seen in the emergency department this facility last week on 04/07/2021 for evaluation of weakness and near syncope. Her workup was essentially normal and she was discharged back to the skilled nursing. Unfortunately her condition has continued to decline and she has not been eating or drinking. She has become increasingly more confused as well and is really not even communicating. She is quite dehydrated on exam and she now has evidence of urinary tract infection as well as increasing BUN and creatinine. At the time my evaluation she is alert and she does attempt to answer some questions however she mumbles and I am not able to understand what she is saying. Date/Time 04/13/21924 Patient seems to be very sweet. She talks very low and it is really hard to understand her. I did kind of make out that she is having some flank pain bilaterally,
--- NOTE | 2021-04-14 13:00 | P.PNIM_ITS ---
Progress Note: A&P Assessment and Plan (1) Acute metabolic encephalopathy: Code(s): G93.41 - Metabolic encephalopathy Status: Acute Assessment and Plan: * reported that she has not been eating or drinking * Been more confused than baseline * UA suspicious for UTI Turbid, 2+ protein, 1+ blood, leukocyte esterase 2+, WBC >75, WBC in clumps * Ceftriaxone 1gm q24hr * Strict I&Os * Urinary catheter * Urine culture still in progress * Abd/Pel CT found a stone in the left pelviectasis with diffuse bladder wall thickening. (2) Urinary tract infection: Code(s): N39.0 - Urinary tract infection, site not specified Status: Acute Assessment and Plan: * UA suspicious for UTI Turbid, 2+ protein, 1+ blood, leukocyte esterase 2+, WBC >75, WBC in clumps * Ceftriaxone 1gm q24hr * Strict I&Os * Urinary catheter * Urine culture pending * Abd/Pel CT found a stone in the left pelviectasis with diffuse bladder wall thickening. (3) Hydronephrosis: Code(s): N13.30 - Unspecified hydronephrosis Status: Acute Assessment and Plan: * Abd/Pel CT found: Huge 8.8 x 11.9 x 17 mm proximal left ureteral calculus with severe left pelviectasis and hydronephrosis, Diffuse bladder wall thickening * Urinary catheter * Urology consult Thank you for your help * Ceftriaxone * Scheduled for a cystoscopy with stent placement (4) Acute kidney injury: Code(s): N17.9 - Acute kidney failure, unspecified Status: Acute Assessment and Plan: * BUN/Cr back to baseline * Probably from poor PO intake and dehydration * Related to cystitis and hydronephrosis * Trend labs * Fluids for hydration (5) Dehydration: Code(s): E86.0 - Dehydration Status: Acute Assessment and Plan: * See above (6) Hypertension: Code(s): I10 - Essential (primary) hypertension Status: Acute Assessment and Plan: * BP stable at 122/50 * Continue home amlodipine 2.5mg PO daily * Trend BP * Adjust medications as needed (7) Dementia: Code(s): F03.90 - Unspecified dementia without behavioral disturbance Status: Acute Assessment and Plan: * Continue home medications (8) Thyroid disorder: Code(s): E07.9 - Disorder of thyroid, unspecified Status: Acute Assessment and Plan: * TSH 1.130 * Free T4 1.22 Time Spent With Patient Time with patient: Greater than 35 minutes Subjective Date/time seen: 04/14/21 13:00 Interval history: Date/Time: 04/12/21 21:00 Narrative: This is a an 85-year-old female with dementia, hypertension, diabetes, and hypothyroidism who presented to the emergency department earlier today via EMS from [facility] for evaluation as she has not been eating or drinking for the past 2 days. The patient typically goes to [facility] and I have not been able to reach her emergency contacts and as such the following history is limited to a review of her electronic medical records and paperwork that accompanied her. It is noted that the patient was seen in the emergency department this facility last week on 04/07/2021 for evaluation of weakness and near syncope. Her workup was essentially normal and she was discharged back to the group home. Unfortunately her condition has continued to decline and she has not been eating or d
--- NOTE | 2021-04-14 14:14 | WPDANESEPPF ---
Anes - Initial Pre Proc Eval Procedure: Operation Date: 04/14/21 14:30 Proposed Procedures p Cystoscopy, Left Stent Placement - Robert Alvarez MD Date/Time: 04/14/21 14:14 Surgeon: Sinan Hazel MD Pre Op Diagnosis: Acute Kidney Injury, UTI Encephalopathy Patient Data Age: 85 Gender: F Height: 1.57 m Weight: 60.8 kg Last Vital Signs Temp 37.6 C 04/14/21 14:00 Pulse 55 L 04/14/21 14:00 Resp 18 04/14/21 14:00 BP 162/67 H 04/14/21 14:00 Pulse Ox 98 04/14/21 14:00 Allergies Allergy/AdvReac Type Severity Reaction Status Date / Time hydrochlorothiazide Allergy Unknown Verified 04/12/21 21:15 meperidine Allergy Unknown Verified 04/12/21 21:15 moxifloxacin Allergy Unknown Verified 04/12/21 21:15 oxycodone Allergy Unknown Verified 04/12/21 21:15 penicillamine Allergy Unknown Verified 04/12/21 21:15 Penicillins Allergy Unknown Verified 04/12/21 21:15 Home Medications Medication Instructions Recorded Confirmed Type Lactobacillus acidophilus 1 cap PO BID 04/12/21 04/12/21 History acetaminophen 650 mg PO Q6H PRN 04/12/21 04/12/21 History albuterol sulfate [Ventolin HFA] 2 puff INHALATION Q4-6H PRN 04/12/21 04/12/21 History amlodipine 2.5 mg PO DAILY 04/12/21 04/12/21 History aspirin 81 mg PO DAILY 04/12/21 04/12/21 History atorvastatin 10 mg PO HS 04/12/21 04/12/21 History buspirone 7.5 mg PO BID 04/12/21 04/12/21 History cholecalciferol (vitamin D3) 2,000 unit PO DAILY 04/12/21 04/12/21 History [Vitamin D3] cyanocobalamin (vitamin B-12) 1,000 mcg PO DAILY 04/12/21 04/12/21 History docusate sodium 100 mg PO BID 04/12/21 04/12/21 History donepezil [Aricept] 10 mg PO HS 04/12/21 04/12/21 History famotidine 20 mg PO DAILY 04/12/21 04/12/21 History ferrous sulfate 325 mg PO BID 04/12/21 04/12/21 History hydrocodone-acetaminophen 1 tablet PO TID PRN 04/12/21 04/12/21 History methimazole 10 mg PO DAILY 04/12/21 04/12/21 History ondansetron HCl [Zofran] 4 mg PO Q6H PRN 04/12/21 04/12/21 History quetiapine 12.5 mg PO BID 04/12/21 04/12/21 History Laboratory Tests 04/13/21 04/13/21 04/14/21 16:31 20:54 05:48 WBC 3.9 K/mm3 L K/mm3 (4.5-10.0) RBC 3.66 M/mm3 L M/mm3 (4.2-5.4) Hgb 9.9 g/dL L g/dL (12.0-15.0) Hct 31.9 % L % (37.0-47.0) MCV 87.2 fl fl (80-100) MCH 27.0 pg pg (26-34) MCHC 31.0 g/dl L g/dl (32-36) RDW 15.5 % H % (11.5-14.5) Plt Count 234 k/mm3 k/mm3 (150-375) MPV 10.4 fl fl (7.4-10.4) Immature Gran % (Auto) 0.5 % % (0-0.5) Neut % (Auto) 53.9 % % (45.5-73.1) Lymph % (Auto) 28.1 % % (18.3-44.2) Cotton % (Auto) 16.4 % H % (2.6-8.5) Eos % (Auto) 0.8 % % (0-4.4) Baso % (Auto) 0.3 % % (0.2-1.2) Lymph # (Auto) 1.10 K/mm3 K/mm3 (0.9-3.2) Cotton # (Auto) 0.6 K/mm3 K/mm3 (0.1-0.6) Eos # (Auto) 0.0 K/mm3 K/mm3 (0-0.3) Baso # (Auto) 0.0 K/mm3 K/mm3 (0.0-0.1) Abs Immat Gran (auto) 0.02 K/mm3 K/mm3 (0.00-0.031) Absolute Neuts (auto) 2.1 K/mm3 K/mm3 (1.3-6.7) Absolute Nucleated RBC 0.0 K/mm3 K/mm3 (0.0-0.012) Nucleated RBC % 0.0 % % (0.0-0.2) Sodium Potassium Chloride Carbon Dioxide Anion Gap BUN Creatinine Estim Creat Clear Calc Estimated GFR Glucose POC Capillary Glucose 77 mg/dl mg/dl 114 mg/dl H mg/dl (65-105) (65-105) Calcium Magnesium Total Bilirubin AST ALT Alkaline Phosphatase Total Protein Albumin 04/14/21 04/14/21 04/14/21 05:48 07:59 11:51 WBC RBC Hgb Hct MCV MCH MCHC RDW
--- NOTE | 2021-04-14 15:19 | WPDHPUPDATE1 ---
History and Physical Update Update Date/Time: 04/14/21 15:19 History and Physical has been reviewed, including an updated exam of the patient. There are NO changes in the patient's condition. Risks, benefits, and alternatives have been discussed and questions answered. Patient agrees to proceed with procedure.
[2021-04-14] MEDS: LACTATED RINGERS 1,000 ML 30 ML IV CONT (16:02)
--- NOTE | 2021-04-14 16:07 | W.PM.PROC2 ---
Procedure Note - Detailed Date of Procedure 04/14/21 Pre-op Diagnosis Left proximal ureteral stone, UTI Post-op Diagnosis same Procedure Performed cystoscopy, left retrograde pyelography with left ureteral stent placement and left ureteroscopy Surgeon Robert Alvarez MD Anesthesia general Description of Procedure patient brought to the operative suite where she has prepped draped in routine sterile fashion while in a dorsal lithotomy position after the uneventful induction of a general anesthetic. Nineteen F rigid cystoscope was placed in her bladder. Bladder neck and urethra were normal. Urine was collected for culture. The mucosa of the bladder shows diffuse hyperemia consistent with cystitis. She has no intravesical foreign body or neoplasm. Angiographic catheter was used to obtain a left retrograde pyelogram. She has a large calcified stone obstructing the proximal ureter. I had some difficulty getting a wire beyond it but eventually did so with a 0.[address]ide[address] that 4.8 F double-J ureteral stent was difficult because of resistance. With eventual stent placement in the renal pelvis it then retracted into the distal ureter. I did ureteroscopy with a short tapered semi-rigid ureteral scope pulled the stent back down and positioned appropriately. Scopes wires removed a 16 F catheter was placed to drainage. She tolerated this procedure well. Estimated Blood Loss 0 Drains Yes Packing No Pathology none sent Complications No immediate complications Condition stable Disposition PACU
--- NOTE | 2021-04-14 16:16 | SUR.PHASEI ---
1615 - dr. villafuerte aware of pt's heart rate in 40's. no orders received at this time.
[2021-04-14] MEDS: ATORVASTATIN 10 MG TABLET PO (20:15)
[2021-04-14] MEDS: DONEPEZIL HCL 10 MG TABLET PO (20:15)
[2021-04-14 20:33] LABS: Glucose Point of Care 91 mg/dl (65-105)
[2021-04-15] VITALS (7 sets, daily range): BP systolic 141–159; BP diastolic 68–82; PULSE 60–69; RESP 16–18; TEMP 36.3–37.3; O2SAT 95–100; BMI 11.0
[2021-04-15] MEDS: SODIUM CHLORIDE 0.9% IV 1,000 ML 75 ML IV CONT ×2 (01:02→14:17)
[2021-04-15 05:55] LABS: Basophils Percent Auto 0.2 % (0.2-1.2); Eosinophils Absolute Auto 0.1 K/mm3 (0-0.3); Eosinophils Percent Auto 1.2 % (0-4.4); Hematocrit 35.7 % (37.0-47.0); Hemoglobin 11.1 g/dL (12.0-15.0); Immature Granulocyte Absolute 0.02 K/mm3 (0.00-0.031); Immature Granulocyte Percent A 0.4 % (0-0.5); Lymphocytes Absolute Auto 1.18 K/mm3 (0.9-3.2); Lymphocytes Percent Auto 23.3 % (18.3-44.2); Mean Corpuscular HGB Conc 31.1 g/dl (32-36); Mean Corpuscular Hemoglobin 27.4 pg (26-34); Mean Corpuscular Volume 88.1 fl (80-100); Monocytes Absolute Auto 0.7 K/mm3 (0.1-0.6); Monocytes Percent Auto 13.4 % (2.6-8.5); Neutrophils Absolute Auto 3.1 K/mm3 (1.3-6.7); Neutrophils Percent Auto 61.5 % (45.5-73.1); Platelet Count Result 234 k/mm3 (150-375); Red Blood Count 4.05 M/mm3 (4.2-5.4); Red Cell Distribution Width 15.3 % (11.5-14.5); White Blood Count 5.1 K/mm3 (4.5-10.0)
[2021-04-15 06:08] LABS: Potassium 3.2 mmol/L (3.4-5.0)
[2021-04-15 06:15] LABS: Alanine Aminotransferase 18 U/L (4-35); Albumin Level 3.2 g/dL (3.5-5.1); Alkaline Phosphatase 90 U/L (38-126); Anion Gap 7 mmol/L (8-16); Aspartate Amino Transferase 26 U/L (14-36); Bilirubin,Total 0.5 mg/dL (0.2-1.3); Blood Urea Nitrogen 15 mg/dL (7-17); Calcium 8.9 mg/dL (8.4-10.2); Carbon Dioxide 27 mmol/L (22-30); Chloride 114 mmol/L (98-107); Estimated CRCL calculation 37 ml/min; Estimated Glomerular Filt Rate > 60; Glucose 102 mg/dL (65-110); Sodium 148 mmol/L (137-145)
--- NOTE | 2021-04-15 07:15 | WPDUROPN2 ---
Progress Note: A&P Assessment and Plan (1) Left ureteral stone: Code(s): N20.1 - Calculus of ureter Status: Acute (2) Acute UTI: Code(s): N39.0 - Urinary tract infection, site not specified Status: Acute Assessment and Plan: Seems to be tolerating stent Urine cx.: e. coli / sensitivities pending Discharge when cultures/sensitivities complete. My office is working on scheduling left ESWL. Discussed above with patient's son. Subjective Subjective Date/Time Seen: 04/15/21 07:15 Comfortable Review of Systems Review of Systems: ROS unobtainable: Yes unobtainable due to mental status Exam Const: General: no acute distress Resp: Effort & Inspection: normal respiratory effort GI: Inspection: non-distended GI Palp: No abdominal tenderness and No Guarding due to palpation present (GI) Auscultation: normal bowel sounds Objective Data Vital Signs Vital Signs: Vital Signs - 24 hr 04/14/21 14:00 04/14/21 16:02 04/14/21 16:15 Temperature 99.6 F 98.8 F Pulse Rate 55 L 48 L 45 L Respiratory Rate 18 12 16 Blood Pressure 162/67 H 156/74 H 165/73 H Pulse Oximetry 98 100 100 04/14/21 16:30 04/14/21 16:45 04/14/21 17:00 Temperature Pulse Rate 54 L 54 L 52 L Respiratory Rate 16 15 14 Blood Pressure 171/73 H 168/72 H 168/72 H Pulse Oximetry 99 98 98 04/14/21 17:10 04/14/21 17:43 04/14/21 19:53 Temperature 97.2 F L 98.1 F Pulse Rate 53 L 50 L 70 Respiratory Rate 14 16 16 Blood Pressure 161/74 H 162/57 H 155/89 H Pulse Oximetry 99 96 100 04/15/21 00:31 04/15/21 04:36 Temperature 98 F 97.8 F Pulse Rate 60 60 Respiratory Rate 16 18 Blood Pressure 141/72 H 144/71 H Pulse Oximetry 98 96 Intake/Output Intake/Output: Intake & Output 04/12/21 04/13/21 04/14/21 04/15/21 23:59 23:59 23:59 23:59 Intake Total 2049 2450 2150 275 Output Total 930 1200 Balance 2049 2450 1220 -925 Meds/Results Medications: Active Medications Generic Name Dose Route Start Last Admin Trade Name Freingris PRN Reason Stop Dose Admin Acetaminophen 650 mg 04/13/21 15:23 Acetaminophen 325 Mg Tablet PO Q6H PRN mild pain (1-3), fever Hydrocodone Bitart/Acetaminophen 1 tab 04/13/21 15:20 Hydrocodone/Acetaminophen (*Crx) 5-325 Mg Tablet PO TID PRN Moderate Pain (4-6) Albuterol 2 puff 04/13/21 15:20 Albuterol Sulfate (*Sp) Aerosol 1 Puff INHALATION Q4-6H PRN Shortness Of Breath Or Wheezing Amlodipine Besylate 2.5 mg 04/14/21 09:00 04/14/21 08:34 Amlodipine Besylate 2.5 Mg Tablet PO 2.5 mg DAILY LUCINA Administration Aspirin 81 mg 04/14/21 09:00 04/14/21 08:34 Aspirin 81 Mg Chewable Tablet PO 05/14/21 08:59 81 mg DAILY LUCINA Administration Atorvastatin Calcium 10 mg 04/13/21 21:00 04/14/21 20:15 Atorvastatin 10 Mg Tablet PO 10 mg HS LUCINA Administration Buspirone HCl 7.5 mg 04/13/21 17:00 04/14/21 18:31 Buspirone Hcl 2.5 Mg Tablet PO 05/13/21 16:59 7.5 mg BID LUCINA Administration Cyanocobalamin 1,000 mcg 04/14/21 09:00 04/14/21 08:34 Cyanocobalamin 1,000 Mcg Tablet PO 1,000 mcg DAILY LUCINA Administration Docusate Sodium 100 mg 04/13/21 17:00 04/14/21 18:31 Docusate Sodium 100 Mg Capsule PO 100 mg BID LUCINA Administration Donepezil HCl 10 mg 04/13/21 21:00 04/14/21 20:15 Donepezil Hcl 10 Mg Tablet PO 10 mg HS LUCINA Administration Famotidine 20 mg 04/14/21 09:00 04/14/21 08:34 Famotidine 20 Mg Tablet PO 20 mg DAILY LUCINA Administration Fentanyl Citrate 25 mcg 04/14/21 14:16 Fentanyl Citrate Inj (*Crx) 100 Mcg/2 Ml Vial IV PUSH Q2M PRN Pain Ferrous Sulfate 324 mg 04/13/21 17:00 11/04/21 18:31 Ferrous Sulfate 324 Mg Tablet PO 324 mg BIDWM LUCINA Administration Sodium Chloride 1,000 mls @ 75 mls/hr 04/12/21 17:50 04/15/21 04:58 Normal Saline Iv IV CONT 75 mls/hr .[id number] LUCINA Infusion Ceftriaxone Sodium/Dextrose 1 gm in 50 ml
[2021-04-15 07:54] LABS: Glucose Point of Care 84 mg/dl (65-105)
[2021-04-15] MEDS: CYANOCOBALAMIN 1,000 MCG TABLET 1000 MCG PO (08:26)
[2021-04-15] MEDS: CHOLECALCIFEROL 1,000 UNITS TABLET 2000 UNITS PO (08:26)
[2021-04-15] MEDS: busPIRone HCL 2.5 MG TABLET 7.5 MG PO ×2 (08:26→16:54)
[2021-04-15] MEDS: methiMAzole 10 MG TAB PO (08:27)
[2021-04-15] MEDS: FAMOTIDINE 20 MG TABLET PO (08:27)
[2021-04-15] MEDS: ASPIRIN 81 MG CHEWABLE TABLET PO (08:27)
[2021-04-15] MEDS: ACIDOPHILUS/BULGARICUS CHEWABLE TABLET 1 TABLET PO ×2 (08:27→16:55)
[2021-04-15] MEDS: DOCUSATE SODIUM 100 MG CAPSULE PO ×2 (08:27→16:55)
[2021-04-15] MEDS: QUEtiapine FUMARATE 12.5 MG TABLET PO ×2 (08:27→20:10)
[2021-04-15] MEDS: FERROUS SULFATE 324 MG TABLET PO ×2 (08:27→16:55)
[2021-04-15] MEDS: amLODIPine BESYLATE 2.5 MG TABLET PO (08:27)
--- NOTE | 2021-04-15 10:36 | PCNFU ---
Nutrition Follow-Up Complete: Inadequate Oral Intake as related to dementia as evidenced by poor po intake reported. Goal: Adequate Intake of at least 75% of meals/supplements Patient has limited progress towards goal. We will continue current goal. Pt current nutrition is Minced and Moist, Level 5/DBCC with Glucerna shakes BID. Last recorded weight is 60.2 kg, up from 56.2 kg on admit. Bowel Motility:NO BM reported. Labs Reviewed:Na 148, K 3.2,Hct 35.7,Alb 3.2,Hgb 11.1 Meds Noted:Vit D, Ferrous Sulfate,Colace, Pepcid, NS, Seroquel, [place], Buspar. Additional Notes: Nutrition follow up. Patient seen today, sleeping. 04/14-Left ureteral stent placement. Oral intake for breakfast today, yogurt only and 120 ml fluid. Oral Intake has been poor. Diet supplements of Glucerna shakes providing an additional 220 kcals and 10 gms protein, mixing ice cream to make more calorie dense. PO intake encouraged. Monitoring: Will monitor every 3 days.
--- NOTE | 2021-04-15 11:30 | P.PNIM_ITS ---
Progress Note: A&P Assessment and Plan (1) Acute metabolic encephalopathy: Code(s): G93.41 - Metabolic encephalopathy Status: Acute Assessment and Plan: * reported that she has not been eating or drinking * Been more confused than baseline * UA suspicious for UTI Turbid, 2+ protein, 1+ blood, leukocyte esterase 2+, WBC >75, WBC in clumps * Ceftriaxone 1gm q24hr day 3 * Strict I&Os * Urinary catheter * Urine culture first set showed Proteus Mirabilis and Ecoli * Repeat culture pending * Abd/Pel CT found a stone in the left pelviectasis with diffuse bladder wall thickening. (2) Urinary tract infection: Code(s): N39.0 - Urinary tract infection, site not specified Status: Acute Assessment and Plan: * UA suspicious for UTI Turbid, 2+ protein, 1+ blood, leukocyte esterase 2+, WBC >75, WBC in clumps * Ceftriaxone 1gm q24hr * Strict I&Os * Urinary catheter * Urine culture Ecoli and Proteus Mirabilis, repeat urine culture pending * Abd/Pel CT found a stone in the left pelviectasis with diffuse bladder wall thickening. (3) Hydronephrosis: Code(s): N13.30 - Unspecified hydronephrosis Status: Acute Assessment and Plan: * Abd/Pel CT found: Huge 8.8 x 11.9 x 17 mm proximal left ureteral calculus with severe left pelviectasis and hydronephrosis, Diffuse bladder wall thickening * Urinary catheter * Urology consult Thank you for your help * Ceftriaxone * Scheduled for a cystoscopy with stent placement (4) Acute kidney injury: Code(s): N17.9 - Acute kidney failure, unspecified Status: Acute Assessment and Plan: * BUN/Cr back to baseline * Probably from poor PO intake and dehydration * Related to cystitis and hydronephrosis * Trend labs * Fluids for hydration (5) Dehydration: Code(s): E86.0 - Dehydration Status: Acute Assessment and Plan: * See above (6) Hypertension: Code(s): I10 - Essential (primary) hypertension Status: Acute Assessment and Plan: * BP stable at 145/68 * Continue home amlodipine 2.5mg PO daily * Trend BP * Adjust medications as needed (7) Dementia: Code(s): F03.90 - Unspecified dementia without behavioral disturbance Status: Acute Assessment and Plan: * Continue home medications (8) Thyroid disorder: Code(s): E07.9 - Disorder of thyroid, unspecified Status: Acute Assessment and Plan: * TSH 1.130 * Free T4 1.22 Time Spent With Patient Time with patient: Greater than 35 minutes Subjective Date/time seen: 04/15/21 14:57 Interval history: Date/Time: 04/12/21 21:00 Narrative: This is a an 85-year-old female with dementia, hypertension, diabetes, and hypothyroidism who presented to the emergency department earlier today via EMS from [facility] for evaluation as she has not been eating or drinking for the past 2 days. The patient typically goes to [facility] and I have not been able to reach her emergency contacts and as such the following history is limited to a review of her electronic medical records and paperwork that accompanied her. It is noted that the patient was seen in the emergency department this facility last week on 04/07/2021 for evaluation of weakness and near syncope. Her workup was essentially normal and she was discharged ba
--- NOTE | 2021-04-15 11:30 | PM.IMPN ---
Progress Note: A&P Assessment and Plan (1) Acute metabolic encephalopathy: Code(s): G93.41 - Metabolic encephalopathy Status: Acute Assessment and Plan: reported that she has not been eating or drinking Been more confused than baseline UA suspicious for UTI Turbid, 2+ protein, 1+ blood, leukocyte esterase 2+, WBC >75, WBC in clumps Ceftriaxone 1gm q24hr day 3 Strict I&Os Urinary catheter Urine culture first set showed Proteus Mirabilis and Ecoli Repeat culture pending Abd/Pel CT found a stone in the left pelviectasis with diffuse bladder wall thickening. (2) Urinary tract infection: Code(s): N39.0 - Urinary tract infection, site not specified Status: Acute Assessment and Plan: UA suspicious for UTI Turbid, 2+ protein, 1+ blood, leukocyte esterase 2+, WBC >75, WBC in clumps Ceftriaxone 1gm q24hr Strict I&Os Urinary catheter Urine culture Ecoli and Proteus Mirabilis, repeat urine culture pending Abd/Pel CT found a stone in the left pelviectasis with diffuse bladder wall thickening. (3) Hydronephrosis: Code(s): N13.30 - Unspecified hydronephrosis Status: Acute Assessment and Plan: Abd/Pel CT found: Huge 8.8 x 11.9 x 17 mm proximal left ureteral calculus with severe left pelviectasis and hydronephrosis, Diffuse bladder wall thickening Urinary catheter Urology consult Thank you for your help Ceftriaxone Scheduled for a cystoscopy with stent placement (4) Acute kidney injury: Code(s): N17.9 - Acute kidney failure, unspecified Status: Acute Assessment and Plan: BUN/Cr back to baseline Probably from poor PO intake and dehydration Related to cystitis and hydronephrosis Trend labs Fluids for hydration (5) Dehydration: Code(s): E86.0 - Dehydration Status: Acute Assessment and Plan: See above (6) Hypertension: Code(s): I10 - Essential (primary) hypertension Status: Acute Assessment and Plan: BP stable at 145/68 Continue home amlodipine 2.5mg PO daily Trend BP Adjust medications as needed (7) Dementia: Code(s): F03.90 - Unspecified dementia without behavioral disturbance Status: Acute Assessment and Plan: Continue home medications (8) Thyroid disorder: Code(s): E07.9 - Disorder of thyroid, unspecified Status: Acute Assessment and Plan: TSH 1.130 Free T4 1.22 Time Spent With Patient Time with patient: Greater than 35 minutes Subjective Date/time seen: 04/15/21 14:57 Interval history: Date/Time: 04/12/21 21:00 Narrative: This is a an 85-year-old female with dementia, hypertension, diabetes, and hypothyroidism who presented to the emergency department earlier today via EMS from [facility] for evaluation as she has not been eating or drinking for the past 2 days. The patient typically goes to [facility] and I have not been able to reach her emergency contacts and as such the following history is limited to a review of her electronic medical records and paperwork that accompanied her. It is noted that the patient was seen in the emergency department this facility last week on 04/07/2021 for evaluation of weakness and near syncope. Her workup was essentially normal and she was discharged back to the long term. Unfortunately her condition has continued to decline and she has not been eating or drinking. She has become increasingly more confused as well and is really not even communicating. She is quite dehydrated on exam and she now has evidence of urinary tract infection as well as increasing BUN and creatinine. At the time my evaluation she is alert and she does attempt to answer some questions however she mumbles and I am not able to understand what she is saying. Date/Time 04/13/21924 Patient seems to be very sweet. She talks very low and
[2021-04-15 11:59] LABS: Glucose Point of Care 100 mg/dl (65-105)
--- NOTE | 2021-04-15 15:23 | PCPTNOTE ---
Attempted PT eval through day. Patient still too unresponsive to attempt eval at 15:30. Try again tomorrow. RN notified.
[2021-04-15 16:44] LABS: Glucose Point of Care 85 mg/dl (65-105)
[2021-04-15] MEDS: DONEPEZIL HCL 10 MG TABLET PO (20:10)
[2021-04-15] MEDS: ATORVASTATIN 10 MG TABLET PO (20:10)
[2021-04-16] MEDS: SODIUM CHLORIDE 0.9% IV 1,000 ML 75 ML IV CONT (03:38)
[2021-04-16 03:45] VITALS: BP 157/76; PULSE 66; RESP 16; TEMP 36.5; O2SAT 100
[2021-04-16 06:03] LABS: Basophils Percent Auto 0.4 % (0.2-1.2); Eosinophils Absolute Auto 0.1 K/mm3 (0-0.3); Eosinophils Percent Auto 1.6 % (0-4.4); Hematocrit 37.9 % (37.0-47.0); Hemoglobin 11.9 g/dL (12.0-15.0); Immature Granulocyte Absolute 0.02 K/mm3 (0.00-0.031); Immature Granulocyte Percent A 0.4 % (0-0.5); Lymphocytes Absolute Auto 1.19 K/mm3 (0.9-3.2); Lymphocytes Percent Auto 21.1 % (18.3-44.2); Mean Corpuscular HGB Conc 31.4 g/dl (32-36); Mean Corpuscular Hemoglobin 27.3 pg (26-34); Mean Corpuscular Volume 86.9 fl (80-100); Mean Platelet Volume 10.2 fl (7.4-10.4); Monocytes Absolute Auto 0.6 K/mm3 (0.1-0.6); Monocytes Percent Auto 10.1 % (2.6-8.5); Neutrophils Absolute Auto 3.8 K/mm3 (1.3-6.7); Neutrophils Percent Auto 66.4 % (45.5-73.1); Platelet Count Result 255 k/mm3 (150-375); Red Blood Count 4.36 M/mm3 (4.2-5.4); White Blood Count 5.6 K/mm3 (4.5-10.0)
[2021-04-16 06:15] LABS: Alanine Aminotransferase 16 U/L (4-35); Albumin Level 3.2 g/dL (3.5-5.1); Alkaline Phosphatase 95 U/L (38-126); Anion Gap 8 mmol/L (8-16); Aspartate Amino Transferase 21 U/L (14-36); Bilirubin,Total 0.5 mg/dL (0.2-1.3); Blood Urea Nitrogen 12 mg/dL (7-17); Calcium 8.8 mg/dL (8.4-10.2); Carbon Dioxide 27 mmol/L (22-30); Chloride 109 mmol/L (98-107); Estimated CRCL calculation 37 ml/min; Estimated Glomerular Filt Rate > 60; Glucose 95 mg/dL (65-110); Magnesium 1.7 mg/dL (1.6-2.3); Potassium 2.9 mmol/L (3.4-5.0); Sodium 144 mmol/L (137-145)
[2021-04-16 07:50] LABS: Glucose Point of Care 80 mg/dl (65-105)
[2021-04-16] MEDS: busPIRone HCL 2.5 MG TABLET 7.5 MG PO ×2 (09:01→17:20)
[2021-04-16] MEDS: MAGNESIUM SULF 2 GM/WATER 50ML 2 GM/50 ML BAG IVPB (09:01)
[2021-04-16] MEDS: CHOLECALCIFEROL 1,000 UNITS TABLET 2000 UNITS PO (09:01)
[2021-04-16] MEDS: ACIDOPHILUS/BULGARICUS CHEWABLE TABLET 1 TABLET PO ×2 (09:02→17:21)
[2021-04-16] MEDS: FERROUS SULFATE 324 MG TABLET PO ×2 (09:02→17:21)
[2021-04-16] MEDS: ASPIRIN 81 MG CHEWABLE TABLET PO (09:02)
[2021-04-16] MEDS: amLODIPine BESYLATE 2.5 MG TABLET PO (09:02)
[2021-04-16] MEDS: DOCUSATE SODIUM 100 MG CAPSULE PO ×2 (09:02→17:21)
[2021-04-16] MEDS: CYANOCOBALAMIN 1,000 MCG TABLET 1000 MCG PO (09:02)
[2021-04-16] MEDS: methiMAzole 10 MG TAB PO (09:02)
[2021-04-16] MEDS: QUEtiapine FUMARATE 12.5 MG TABLET PO ×2 (09:02→20:25)
[2021-04-16] MEDS: FAMOTIDINE 20 MG TABLET PO (09:02)
[2021-04-16] MEDS: POTASSIUM CHLORIDE 20 MEQ PACKET (FOR LIQUID) 40 MEQ PO (09:18)
--- NOTE | 2021-04-16 10:20 | PM.IMPN ---
Progress Note: A&P Assessment and Plan (1) Acute metabolic encephalopathy: Code(s): G93.41 - Metabolic encephalopathy Status: Acute Assessment and Plan: This seems to be resolved. She is able to answer some questions, but cant hear her to know what she is saying. reported that she has not been eating or drinking Been more confused than baseline UA suspicious for UTI Turbid, 2+ protein, 1+ blood, leukocyte esterase 2+, WBC >75, WBC in clumps Ceftriaxone 1gm q24hr day 3 Strict I&Os Urinary catheter Urine culture first set showed Proteus Mirabilis and Ecoli Repeat culture pending Abd/Pel CT found a stone in the left pelviectasis with diffuse bladder wall thickening. (2) Urinary tract infection: Code(s): N39.0 - Urinary tract infection, site not specified Status: Acute Assessment and Plan: UA suspicious for UTI Turbid, 2+ protein, 1+ blood, leukocyte esterase 2+, WBC >75, WBC in clumps Ceftriaxone 1gm q24hr Strict I&Os Urinary catheter Urine culture Ecoli and Proteus Mirabilis, repeat urine culture pending Abd/Pel CT found a stone in the left pelviectasis with diffuse bladder wall thickening. (3) Hydronephrosis: Code(s): N13.30 - Unspecified hydronephrosis Status: Acute Assessment and Plan: Abd/Pel CT found: Huge 8.8 x 11.9 x 17 mm proximal left ureteral calculus with severe left pelviectasis and hydronephrosis, Diffuse bladder wall thickening Urinary catheter Urology consult Thank you for your help Ceftriaxone Scheduled for a cystoscopy with stent placement (4) Acute kidney injury: Code(s): N17.9 - Acute kidney failure, unspecified Status: Acute Assessment and Plan: BUN/Cr back to baseline Probably from poor PO intake and dehydration Related to cystitis and hydronephrosis Trend labs (5) Dehydration: Code(s): E86.0 - Dehydration Status: Acute Assessment and Plan: See above (6) Hypertension: Code(s): I10 - Essential (primary) hypertension Status: Acute Assessment and Plan: BP stable at 157/76 Continue home amlodipine 2.5mg PO daily Trend BP Adjust medications as needed (7) Dementia: Code(s): F03.90 - Unspecified dementia without behavioral disturbance Status: Acute Assessment and Plan: Continue home medications (8) Thyroid disorder: Code(s): E07.9 - Disorder of thyroid, unspecified Status: Acute Assessment and Plan: TSH 1.130 Free T4 1.22 Time Spent With Patient Time with patient: Greater than 35 minutes Subjective Date/time seen: 04/16/21 1020 Interval history: Date/Time: 04/12/21 21:00 Narrative: This is a an 85-year-old female with dementia, hypertension, diabetes, and hypothyroidism who presented to the emergency department earlier today via EMS from [facility] for evaluation as she has not been eating or drinking for the past 2 days. The patient typically goes to [facility] and I have not been able to reach her emergency contacts and as such the following history is limited to a review of her electronic medical records and paperwork that accompanied her. It is noted that the patient was seen in the emergency department this facility last week on 04/07/2021 for evaluation of weakness and near syncope. Her workup was essentially normal and she was discharged back to the half-way. Unfortunately her condition has continued to decline and she has not been eating or drinking. She has become increasingly more confused as well and is really not even communicating. She is quite dehydrated on exam and she now has evidence of urinary tract infection as well as increasing BUN and creatinine. At the time my evaluation she is alert and she does attempt to answer some questions however she mumbles and I am not able to understand what she is say
--- NOTE | 2021-04-16 10:20 | P.PNIM_ITS ---
Progress Note: A&P Assessment and Plan (1) Acute metabolic encephalopathy: Code(s): G93.41 - Metabolic encephalopathy Status: Acute Assessment and Plan: * This seems to be resolved. She is able to answer some questions, but cant hear her to know what she is saying. * reported that she has not been eating or drinking * Been more confused than baseline * UA suspicious for UTI Turbid, 2+ protein, 1+ blood, leukocyte esterase 2+, WBC >75, WBC in clumps * Ceftriaxone 1gm q24hr day 3 * Strict I&Os * Urinary catheter * Urine culture first set showed Proteus Mirabilis and Ecoli * Repeat culture pending * Abd/Pel CT found a stone in the left pelviectasis with diffuse bladder wall thickening. (2) Urinary tract infection: Code(s): N39.0 - Urinary tract infection, site not specified Status: Acute Assessment and Plan: * UA suspicious for UTI Turbid, 2+ protein, 1+ blood, leukocyte esterase 2+, WBC >75, WBC in clumps * Ceftriaxone 1gm q24hr * Strict I&Os * Urinary catheter * Urine culture Ecoli and Proteus Mirabilis, repeat urine culture pending * Abd/Pel CT found a stone in the left pelviectasis with diffuse bladder wall thickening. (3) Hydronephrosis: Code(s): N13.30 - Unspecified hydronephrosis Status: Acute Assessment and Plan: * Abd/Pel CT found: Huge 8.8 x 11.9 x 17 mm proximal left ureteral calculus with severe left pelviectasis and hydronephrosis, Diffuse bladder wall thickening * Urinary catheter * Urology consult Thank you for your help * Ceftriaxone * Scheduled for a cystoscopy with stent placement (4) Acute kidney injury: Code(s): N17.9 - Acute kidney failure, unspecified Status: Acute Assessment and Plan: * BUN/Cr back to baseline * Probably from poor PO intake and dehydration * Related to cystitis and hydronephrosis * Trend labs (5) Dehydration: Code(s): E86.0 - Dehydration Status: Acute Assessment and Plan: * See above (6) Hypertension: Code(s): I10 - Essential (primary) hypertension Status: Acute Assessment and Plan: * BP stable at 157/76 * Continue home amlodipine 2.5mg PO daily * Trend BP * Adjust medications as needed (7) Dementia: Code(s): F03.90 - Unspecified dementia without behavioral disturbance Status: Acute Assessment and Plan: * Continue home medications (8) Thyroid disorder: Code(s): E07.9 - Disorder of thyroid, unspecified Status: Acute Assessment and Plan: * TSH 1.130 * Free T4 1.22 Time Spent With Patient Time with patient: Greater than 35 minutes Subjective Date/time seen: 04/16/21 1020 Interval history: Date/Time: 04/12/21 21:00 Narrative: This is a an 85-year-old female with dementia, hypertension, diabetes, and hypothyroidism who presented to the emergency department earlier today via EMS from [facility] for evaluation as she has not been eating or drinking for the past 2 days. The patient typically goes to [facility] and I have not been able to reach her emergency contacts and as such the following history is limited to a review of her electronic medical records and paperwork that accompanied her. It is noted that the patient was seen in the emergency department this facility last week on 04/07/2021 for evaluation o
[2021-04-16 11:59] LABS: Glucose Point of Care 95 mg/dl (65-105)
[2021-04-16 13:59] VITALS: BP 142/68; PULSE 58; RESP 18; TEMP 36; O2SAT 100
[2021-04-16 16:29] LABS: Glucose Point of Care 82 mg/dl (65-105)
[2021-04-16 20:11] VITALS: BP 132/84; PULSE 68; RESP 17; TEMP 35.7; O2SAT 98
[2021-04-16] MEDS: ATORVASTATIN 10 MG TABLET PO (20:25)
[2021-04-16] MEDS: DONEPEZIL HCL 10 MG TABLET PO (20:25)
--- NOTE | 2021-04-17 01:17 | PC.NURSE ---
Daylight Savings Time For Daylight Savings Time Ending in the Fall - Clocks are moved back. For Daylight Savings Time Beginning in the Spring - Clocks are moved ahead. For [facility], the time of change occurs at 0200 hrs. Time is taken from the surveillance observer. This entry on the patient's chart recognizes the change in time reflected during documentation. Example: 2 entries for vital signs may be charted for 0200 hrs.
[2021-04-17 04:13] VITALS: BP 140/69; PULSE 66; RESP 18; TEMP 36.9; O2SAT 99
[2021-04-17 05:59] LABS: Basophils Percent Auto 0.3 % (0.2-1.2); Eosinophils Absolute Auto 0.1 K/mm3 (0-0.3); Eosinophils Percent Auto 1.5 % (0-4.4); Hematocrit 36.6 % (37.0-47.0); Hemoglobin 11.5 g/dL (12.0-15.0); Immature Granulocyte Absolute 0.03 K/mm3 (0.00-0.031); Immature Granulocyte Percent A 0.5 % (0-0.5); Lymphocytes Absolute Auto 1.37 K/mm3 (0.9-3.2); Lymphocytes Percent Auto 23.4 % (18.3-44.2); Mean Corpuscular HGB Conc 31.4 g/dl (32-36); Mean Corpuscular Hemoglobin 27.4 pg (26-34); Mean Corpuscular Volume 87.4 fl (80-100); Monocytes Absolute Auto 0.5 K/mm3 (0.1-0.6); Monocytes Percent Auto 8.5 % (2.6-8.5); Neutrophils Absolute Auto 3.8 K/mm3 (1.3-6.7); Neutrophils Percent Auto 65.8 % (45.5-73.1); Platelet Count Result 265 k/mm3 (150-375); Red Blood Count 4.19 M/mm3 (4.2-5.4); Red Cell Distribution Width 15.1 % (11.5-14.5); White Blood Count 5.9 K/mm3 (4.5-10.0)
[2021-04-17 06:15] LABS: Alanine Aminotransferase 14 U/L (4-35); Albumin Level 3.2 g/dL (3.5-5.1); Alkaline Phosphatase 92 U/L (38-126); Anion Gap 6 mmol/L (8-16); Aspartate Amino Transferase 18 U/L (14-36); Bilirubin,Total 0.4 mg/dL (0.2-1.3); Blood Urea Nitrogen 19 mg/dL (7-17); Calcium 8.8 mg/dL (8.4-10.2); Carbon Dioxide 28 mmol/L (22-30); Chloride 111 mmol/L (98-107); Estimated CRCL calculation 37 ml/min; Estimated Glomerular Filt Rate > 60; Glucose 101 mg/dL (65-110); Magnesium 2.2 mg/dL (1.6-2.3); Potassium 3.2 mmol/L (3.4-5.0); Sodium 145 mmol/L (137-145)
[2021-04-17] MEDS: amLODIPine BESYLATE 2.5 MG TABLET PO (07:14)
[2021-04-17] MEDS: ACIDOPHILUS/BULGARICUS CHEWABLE TABLET 1 TABLET PO ×2 (07:14→16:32)
[2021-04-17] MEDS: FERROUS SULFATE 324 MG TABLET PO ×2 (07:14→16:32)
[2021-04-17] MEDS: DOCUSATE SODIUM 100 MG CAPSULE PO ×2 (07:15→16:32)
[2021-04-17] MEDS: FAMOTIDINE 20 MG TABLET PO (07:15)
[2021-04-17] MEDS: CYANOCOBALAMIN 1,000 MCG TABLET 1000 MCG PO (07:15)
[2021-04-17] MEDS: ASPIRIN 81 MG CHEWABLE TABLET PO (07:15)
[2021-04-17] MEDS: CHOLECALCIFEROL 1,000 UNITS TABLET 2000 UNITS PO (07:15)
[2021-04-17] MEDS: busPIRone HCL 2.5 MG TABLET 7.5 MG PO ×2 (07:15→16:32)
[2021-04-17] MEDS: QUEtiapine FUMARATE 12.5 MG TABLET PO ×2 (07:16→20:36)
[2021-04-17] MEDS: methiMAzole 10 MG TAB PO (07:16)
[2021-04-17 08:11] VITALS: BP 127/77; PULSE 72; RESP 16; TEMP 36.3; O2SAT 100
--- NOTE | 2021-04-17 12:20 | P.PNIM_ITS ---
Progress Note: A&P Assessment and Plan (1) Acute metabolic encephalopathy: Code(s): G93.41 - Metabolic encephalopathy Status: Acute Assessment and Plan: * This seems to be resolved. She is able to answer some questions, but cant hear her to know what she is saying. * reported that she has not been eating or drinking * Been more confused than baseline * UA suspicious for UTI Turbid, 2+ protein, 1+ blood, leukocyte esterase 2+, WBC >75, WBC in clumps * Ceftriaxone 1gm q24hr day 3 * Strict I&Os * Urinary catheter * Urine culture first set showed Proteus Mirabilis and Ecoli * Repeat culture NGTD * Abd/Pel CT found a stone in the left pelviectasis with diffuse bladder wall thickening. (2) Urinary tract infection: Code(s): N39.0 - Urinary tract infection, site not specified Status: Acute Assessment and Plan: * UA suspicious for UTI Turbid, 2+ protein, 1+ blood, leukocyte esterase 2+, WBC >75, WBC in clumps * Ceftriaxone 1gm q24hr * Strict I&Os * Urinary catheter * Urine culture Ecoli and Proteus Mirabilis, repeat urine culture pending * Abd/Pel CT found a stone in the left pelviectasis with diffuse bladder wall thickening. (3) Hematuria: Code(s): R31.9 - Hematuria, unspecified Status: Acute Assessment and Plan: * Kind of expected after stent placement, concerning since she is status post stent placement day 3 * Urine is thick and more red * H/H stable * Urology following * Urinary catheter (4) Left ureteral stone: Code(s): N20.1 - Calculus of ureter Status: Acute Assessment and Plan: * Stent placed 04/14/21 * Urology following * Urine cultures grew e.coli and proteus mirabilis * IV ceftriaxone * Repeat urine culture shows NGTD (5) Hydronephrosis: Code(s): N13.30 - Unspecified hydronephrosis Status: Acute Assessment and Plan: * Abd/Pel CT found: Huge 8.8 x 11.9 x 17 mm proximal left ureteral calculus with severe left pelviectasis and hydronephrosis, Diffuse bladder wall thickening * Urinary catheter * Urology consult Thank you for your help * Ceftriaxone * Scheduled for a cystoscopy with stent placement (6) Acute kidney injury: Code(s): N17.9 - Acute kidney failure, unspecified Status: Acute Assessment and Plan: * BUN/Cr back to baseline * Probably from poor PO intake and dehydration * Related to cystitis and hydronephrosis * Trend labs (7) Dehydration: Code(s): E86.0 - Dehydration Status: Acute Assessment and Plan: * See above (8) Hypertension: Code(s): I10 - Essential (primary) hypertension Status: Acute Assessment and Plan: * BP stable at 157/76 * Continue home amlodipine 2.5mg PO daily * Trend BP * Adjust medications as needed (9) Dementia: Code(s): F03.90 - Unspecified dementia without behavioral disturbance Status: Acute Assessment and Plan: * Continue home medications (10) Thyroid disorder: Code(s): E07.9 - Disorder of thyroid, unspecified Status: Acute Assessment and Plan: * TSH 1.130 * Free T4 1.22 Time Spent With Patient Time with patient: Greater than 35 minutes Subjective Date/time seen: 04/17/21
--- NOTE | 2021-04-17 12:20 | PM.IMPN ---
Progress Note: A&P Assessment and Plan (1) Acute metabolic encephalopathy: Code(s): G93.41 - Metabolic encephalopathy Status: Acute Assessment and Plan: This seems to be resolved. She is able to answer some questions, but cant hear her to know what she is saying. reported that she has not been eating or drinking Been more confused than baseline UA suspicious for UTI Turbid, 2+ protein, 1+ blood, leukocyte esterase 2+, WBC >75, WBC in clumps Ceftriaxone 1gm q24hr day 3 Strict I&Os Urinary catheter Urine culture first set showed Proteus Mirabilis and Ecoli Repeat culture NGTD Abd/Pel CT found a stone in the left pelviectasis with diffuse bladder wall thickening. (2) Urinary tract infection: Code(s): N39.0 - Urinary tract infection, site not specified Status: Acute Assessment and Plan: UA suspicious for UTI Turbid, 2+ protein, 1+ blood, leukocyte esterase 2+, WBC >75, WBC in clumps Ceftriaxone 1gm q24hr Strict I&Os Urinary catheter Urine culture Ecoli and Proteus Mirabilis, repeat urine culture pending Abd/Pel CT found a stone in the left pelviectasis with diffuse bladder wall thickening. (3) Hematuria: Code(s): R31.9 - Hematuria, unspecified Status: Acute Assessment and Plan: Kind of expected after stent placement, concerning since she is status post stent placement day 3 Urine is thick and more red H/H stable Urology following Urinary catheter (4) Left ureteral stone: Code(s): N20.1 - Calculus of ureter Status: Acute Assessment and Plan: Stent placed 04/14/21 Urology following Urine cultures grew e.coli and proteus mirabilis IV ceftriaxone Repeat urine culture shows NGTD (5) Hydronephrosis: Code(s): N13.30 - Unspecified hydronephrosis Status: Acute Assessment and Plan: Abd/Pel CT found: Huge 8.8 x 11.9 x 17 mm proximal left ureteral calculus with severe left pelviectasis and hydronephrosis, Diffuse bladder wall thickening Urinary catheter Urology consult Thank you for your help Ceftriaxone Scheduled for a cystoscopy with stent placement (6) Acute kidney injury: Code(s): N17.9 - Acute kidney failure, unspecified Status: Acute Assessment and Plan: BUN/Cr back to baseline Probably from poor PO intake and dehydration Related to cystitis and hydronephrosis Trend labs (7) Dehydration: Code(s): E86.0 - Dehydration Status: Acute Assessment and Plan: See above (8) Hypertension: Code(s): I10 - Essential (primary) hypertension Status: Acute Assessment and Plan: BP stable at 157/76 Continue home amlodipine 2.5mg PO daily Trend BP Adjust medications as needed (9) Dementia: Code(s): F03.90 - Unspecified dementia without behavioral disturbance Status: Acute Assessment and Plan: Continue home medications (10) Thyroid disorder: Code(s): E07.9 - Disorder of thyroid, unspecified Status: Acute Assessment and Plan: TSH 1.130 Free T4 1.22 Time Spent With Patient Time with patient: Greater than 35 minutes Subjective Date/time seen: 04/17/21 12:20 Interval history: Date/Time: 04/12/21 21:00 Narrative: This is a an 85-year-old female with dementia, hypertension, diabetes, and hypothyroidism who presented to the emergency department earlier today via EMS from [facility] for evaluation as she has not been eating or drinking for the past 2 days. The patient typically goes to [facility] and I have not been able to reach her emergency contacts and as such the following history is limited to a review of her electronic medical records and paperwork that accompanied her. It is noted that the patient was seen in the emergency department this facility last week on 04/07/2021 for eval
[2021-04-17] MEDS: POTASSIUM CHLORIDE 20 MEQ PACKET (FOR LIQUID) 40 MEQ PO (15:29)
[2021-04-17 18:39] VITALS: BP 123/70; PULSE 65; RESP 20; TEMP 36.9; O2SAT 99
[2021-04-17 20:33] VITALS: BP 150/76; PULSE 65; RESP 16; TEMP 36.1; O2SAT 98
[2021-04-17] MEDS: ATORVASTATIN 10 MG TABLET PO (20:36)
[2021-04-17] MEDS: DONEPEZIL HCL 10 MG TABLET PO (20:36)
[2021-04-18 05:11] VITALS: BP 153/78; PULSE 61; RESP 16; TEMP 35.9; O2SAT 100
[2021-04-18 06:16] LABS: Basophils Percent Auto 0.1 % (0.2-1.2); Eosinophils Absolute Auto 0.1 K/mm3 (0-0.3); Hematocrit 38.4 % (37.0-47.0); Hemoglobin 11.8 g/dL (12.0-15.0); Immature Granulocyte Absolute 0.04 K/mm3 (0.00-0.031); Immature Granulocyte Percent A 0.6 % (0-0.5); Lymphocytes Absolute Auto 1.52 K/mm3 (0.9-3.2); Lymphocytes Percent Auto 21.6 % (18.3-44.2); Mean Corpuscular HGB Conc 30.7 g/dl (32-36); Mean Corpuscular Hemoglobin 27.3 pg (26-34); Mean Corpuscular Volume 88.9 fl (80-100); Mean Platelet Volume 10.2 fl (7.4-10.4); Monocytes Absolute Auto 0.6 K/mm3 (0.1-0.6); Monocytes Percent Auto 8.7 % (2.6-8.5); Neutrophils Absolute Auto 4.8 K/mm3 (1.3-6.7); Platelet Count Result 317 k/mm3 (150-375); Red Blood Count 4.32 M/mm3 (4.2-5.4); Red Cell Distribution Width 15.2 % (11.5-14.5)
[2021-04-18 06:31] LABS: Alanine Aminotransferase 14 U/L (4-35); Albumin Level 3.2 g/dL (3.5-5.1); Alkaline Phosphatase 97 U/L (38-126); Anion Gap 6 mmol/L (8-16); Aspartate Amino Transferase 18 U/L (14-36); Bilirubin,Total 0.4 mg/dL (0.2-1.3); Blood Urea Nitrogen 20 mg/dL (7-17); Calcium 9.1 mg/dL (8.4-10.2); Carbon Dioxide 30 mmol/L (22-30); Chloride 111 mmol/L (98-107); Estimated CRCL calculation 33 ml/min; Estimated Glomerular Filt Rate > 60; Glucose 103 mg/dL (65-110); Magnesium 2.2 mg/dL (1.6-2.3); Potassium 3.6 mmol/L (3.4-5.0); Sodium 147 mmol/L (137-145)
[2021-04-18 07:35] LABS: Glucose Point of Care 87 mg/dl (65-105)
[2021-04-18] MEDS: CHOLECALCIFEROL 1,000 UNITS TABLET 2000 UNITS PO (08:26)
[2021-04-18] MEDS: methiMAzole 10 MG TAB PO (08:26)
[2021-04-18] MEDS: FAMOTIDINE 20 MG TABLET PO (08:27)
[2021-04-18] MEDS: amLODIPine BESYLATE 2.5 MG TABLET PO (08:27)
[2021-04-18] MEDS: QUEtiapine FUMARATE 12.5 MG TABLET PO ×2 (08:27→20:07)
[2021-04-18] MEDS: ASPIRIN 81 MG CHEWABLE TABLET PO (08:27)
[2021-04-18] MEDS: ACIDOPHILUS/BULGARICUS CHEWABLE TABLET 1 TABLET PO ×2 (08:27→17:36)
[2021-04-18] MEDS: FERROUS SULFATE 324 MG TABLET PO ×2 (08:27→17:36)
[2021-04-18] MEDS: DOCUSATE SODIUM 100 MG CAPSULE PO ×2 (08:27→17:36)
[2021-04-18] MEDS: CYANOCOBALAMIN 1,000 MCG TABLET 1000 MCG PO (08:27)
[2021-04-18] MEDS: busPIRone HCL 2.5 MG TABLET 7.5 MG PO ×2 (08:27→17:35)
[2021-04-18 08:30] VITALS: BP 126/69; PULSE 72; RESP 16; TEMP 35.9; O2SAT 100
--- NOTE | 2021-04-18 09:00 | PM.DS ---
DS: Admitting Diagnosis Discharge Date Date of service 04/18/2021 at 9:00 a.m. Admitting Diagnosis urinary stone with hydronephrosis and UTI DS: Discharge Diagnosis Discharge Diagnosis (1) Acute metabolic encephalopathy: Code(s): G93.41 - Metabolic encephalopathy Status: Acute Assessment and Plan: This seems to be resolved. She is able to answer some questions, but cant hear her to know what she is saying. reported that she has not been eating or drinking Been more confused than baseline UA suspicious for UTI Turbid, 2+ protein, 1+ blood, leukocyte esterase 2+, WBC >75, WBC in clumps Ceftriaxone 1gm q24hr day 3 Strict I&Os Urinary catheter Urine culture first set showed Proteus Mirabilis and Ecoli Repeat culture NGTD Abd/Pel CT found a stone in the left pelviectasis with diffuse bladder wall thickening. (2) Urinary tract infection: Code(s): N39.0 - Urinary tract infection, site not specified Status: Acute Assessment and Plan: UA suspicious for UTI Turbid, 2+ protein, 1+ blood, leukocyte esterase 2+, WBC >75, WBC in clumps Ceftriaxone 1gm q24hr Strict I&Os Urinary catheter Urine culture Ecoli and Proteus Mirabilis, repeat urine culture pending Abd/Pel CT found a stone in the left pelviectasis with diffuse bladder wall thickening. (3) Hematuria: Code(s): R31.9 - Hematuria, unspecified Status: Acute Assessment and Plan: Kind of expected after stent placement, concerning since she is status post stent placement day 3 Urine is thick and more red H/H stable Urology following Urinary catheter (4) Left ureteral stone: Code(s): N20.1 - Calculus of ureter Status: Acute Assessment and Plan: Stent placed 04/14/21 Urology following Urine cultures grew e.coli and proteus mirabilis IV ceftriaxone Repeat urine culture shows NGTD (5) Hydronephrosis: Code(s): N13.30 - Unspecified hydronephrosis Status: Acute Assessment and Plan: Abd/Pel CT found: Huge 8.8 x 11.9 x 17 mm proximal left ureteral calculus with severe left pelviectasis and hydronephrosis, Diffuse bladder wall thickening Urinary catheter Urology consult Thank you for your help Ceftriaxone Scheduled for a cystoscopy with stent placement (6) Acute kidney injury: Code(s): N17.9 - Acute kidney failure, unspecified Status: Acute Assessment and Plan: BUN/Cr back to baseline Probably from poor PO intake and dehydration Related to cystitis and hydronephrosis Trend labs (7) Dehydration: Code(s): E86.0 - Dehydration Status: Acute Assessment and Plan: See above (8) Hypertension: Code(s): I10 - Essential (primary) hypertension Status: Acute Assessment and Plan: BP stable at 157/76 Continue home amlodipine 2.5mg PO daily Trend BP Adjust medications as needed (9) Dementia: Code(s): F03.90 - Unspecified dementia without behavioral disturbance Status: Acute Assessment and Plan: Continue home medications (10) Thyroid disorder: Code(s): E07.9 - Disorder of thyroid, unspecified Status: Acute Assessment and Plan: TSH 1.130 Free T4 1.22 DS: Summary Hospital Course Hospital Course: Patient is an 85-year-old female with past history of dementia, hypertension, diabetes, and hypothyroidism who presented to the emergency room for evaluation altered mental status including not eating or drinking for the past few days prior to admission. CT of the abdomen and pelvis found that the patient has a very large stone in the left proximal ureteral calculus with hydronephrosis. Urology was consulted and the patient was taken to the OR for stent placement. Urinary catheter was placed for better therapy. Urine output was adequate throughout the admission. Ur
--- NOTE | 2021-04-18 09:00 | P.DS_ITS ---
DS: Admitting Diagnosis Discharge Date Date of service 04/18/2021 at 9:00 a.m. Admitting Diagnosis urinary stone with hydronephrosis and UTI DS: Discharge Diagnosis Discharge Diagnosis (1) Acute metabolic encephalopathy: Code(s): G93.41 - Metabolic encephalopathy Status: Acute Assessment and Plan: * This seems to be resolved. She is able to answer some questions, but cant hear her to know what she is saying. * reported that she has not been eating or drinking * Been more confused than baseline * UA suspicious for UTI Turbid, 2+ protein, 1+ blood, leukocyte esterase 2+, WBC >75, WBC in clumps * Ceftriaxone 1gm q24hr day 3 * Strict I&Os * Urinary catheter * Urine culture first set showed Proteus Mirabilis and Ecoli * Repeat culture NGTD * Abd/Pel CT found a stone in the left pelviectasis with diffuse bladder wall thickening. (2) Urinary tract infection: Code(s): N39.0 - Urinary tract infection, site not specified Status: Acute Assessment and Plan: * UA suspicious for UTI Turbid, 2+ protein, 1+ blood, leukocyte esterase 2+, WBC >75, WBC in clumps * Ceftriaxone 1gm q24hr * Strict I&Os * Urinary catheter * Urine culture Ecoli and Proteus Mirabilis, repeat urine culture pending * Abd/Pel CT found a stone in the left pelviectasis with diffuse bladder wall thickening. (3) Hematuria: Code(s): R31.9 - Hematuria, unspecified Status: Acute Assessment and Plan: * Kind of expected after stent placement, concerning since she is status post stent placement day 3 * Urine is thick and more red * H/H stable * Urology following * Urinary catheter (4) Left ureteral stone: Code(s): N20.1 - Calculus of ureter Status: Acute Assessment and Plan: * Stent placed 04/14/21 * Urology following * Urine cultures grew e.coli and proteus mirabilis * IV ceftriaxone * Repeat urine culture shows NGTD (5) Hydronephrosis: Code(s): N13.30 - Unspecified hydronephrosis Status: Acute Assessment and Plan: * Abd/Pel CT found: Huge 8.8 x 11.9 x 17 mm proximal left ureteral calculus with severe left pelviectasis and hydronephrosis, Diffuse bladder wall thickening * Urinary catheter * Urology consult Thank you for your help * Ceftriaxone * Scheduled for a cystoscopy with stent placement (6) Acute kidney injury: Code(s): N17.9 - Acute kidney failure, unspecified Status: Acute Assessment and Plan: * BUN/Cr back to baseline * Probably from poor PO intake and dehydration * Related to cystitis and hydronephrosis * Trend labs (7) Dehydration: Code(s): E86.0 - Dehydration Status: Acute Assessment and Plan: * See above (8) Hypertension: Code(s): I10 - Essential (primary) hypertension Status: Acute Assessment and Plan: * BP stable at 157/76 * Continue home amlodipine 2.5mg PO daily * Trend BP * Adjust medications as needed (9) Dementia: Code(s): F03.90 - Unspecified dementia without behavioral disturbance Status: Acute Assessment and Plan: * Continue home medications (10) Thyroid disorder: Code(s): E07.9 - Disorder of thyroid, unspecified Status: Acute Assessment and Plan: * TSH 1.130 * F
--- NOTE | 2021-04-18 13:55 | PCNFU ---
Nutrition Follow-Up Complete: Inadequate Oral Intake as related to dementia as evidenced by poor po intake reported. Goal: Adequate Intake of at least 75% of meals/supplements Patient is progressing towards goal. We will continue current goal. Pt current nutrition is Minced and Moist,Level 5 /DBCC with Glucerna shakes BID. Last recorded weight is 58.7 kg, up from 56.2 kg on admit. Bowel Motility:+BM reported 11.7 Labs Reviewed: BUN 20, Na 147, Hgb 11.8 Meds Noted:Buspar, [place], Seroquel, Colace, Vit D, Rocephin, Ferrous Sulfate, Aricept. Skin: WNL Additional Notes: Patient seen today for nutrition follow up. Oral Intake has been 10-75% of meals. Patient does like ice cream that has been added with Glucerna shakes BID. Diet supplements are providing patient with an additional 220 kcals and 10 gms protein. Agree with diet orders. Monitoring: Will monitor every 3 days.
[2021-04-18 16:00] VITALS: BP 160/75; PULSE 69; RESP 16; TEMP 37.1; O2SAT 100
[2021-04-18] MEDS: SODIUM CHLORIDE 0.9% IV 250 ML IV CONT (16:50)
--- NOTE | 2021-04-18 18:56 | PC.NURSE ---
Spoke with [facility] and ED care coordination in regards to patients discharge. Per Ramses Sanchez, patient is able to be discharged now. [facility] states they will accept patient still tonight. Care coordination in ED has contacted son and is working on packet for discharge.
--- NOTE | 2021-04-18 19:06 | PCCCNOTE ---
Phone call received from area field manager stating that patient was being discharged tonight and ask for Anode Builder to help facilitate. Called to associate director at [facility] and spoke with Zunilda, she states that she will notify staff of return tonight. Provides fax # of [phone] and Phone # of [phone] for report. Called to son Porter Bettencourt to notify of DC. IM updated with son on the phone. Patient will return to [facility] via ambulance. area field manager aware and packet provided to [facility].
[2021-04-18 20:00] VITALS: PULSE 69; RESP 16; O2SAT 96
[2021-04-18] MEDS: DONEPEZIL HCL 10 MG TABLET PO (20:07)
[2021-04-18] MEDS: ATORVASTATIN 10 MG TABLET PO (20:07)
[2021-04-18 20:46] VITALS: O2SAT 96
[2021-04-18 21:38] VITALS: BP 153/76; PULSE 65; RESP 20; TEMP 36.8; O2SAT 98
== END 2021-04-18 22:25 | DRG 659 ==
LOC: ANHED 12:18 → ANH3MED 19:07
PROVIDERS: Physician Assistant; Urology; Admitting Provider Internal Medicine; Emergency Provider General Practice; Visit Provider Nurse Practitioner
PROC: 0T778DZ Dilation of Left Ureter with Intraluminal Device, Via Natural or Artificial Opening Endoscopic (ICD-10-PCS; CPT 52352; principal; 2021-04-14 14:30)
DX: N13.6 Pyonephrosis (principal); G93.41 Metabolic encephalopathy; B96.20 Unspecified Escherichia coli [E. coli] as the cause of diseases classified elsewhere; B96.4 Proteus (mirabilis) (morganii) as the cause of diseases classified elsewhere; N17.9 Acute kidney failure, unspecified; R31.9 Hematuria, unspecified; F03.90 Unspecified dementia, unspecified severity, without behavioral disturbance, psychotic disturbance, mood disturbance, and anxiety; F32.A Depression, unspecified; E78.5 Hyperlipidemia, unspecified; E11.9 Type 2 diabetes mellitus without complications; E03.9 Hypothyroidism, unspecified; F41.9 Anxiety disorder, unspecified; J45.909 Unspecified asthma, uncomplicated; E55.9 Vitamin D deficiency, unspecified; E86.0 Dehydration
CPT/HCPCS: 36415; 70450; 71045; 74018; 74176; 74420; 80053; 81001; 82550; 82948; 83735; 84439; 84443; 85025; 85610; 85730; 87077; 87086; 87088; 87186; 92610; 93005; 96361; 96365; 97110; 97163; 97167; 97530; 99285; A9270; C1769; C1887; C2617; G0378; J0696; J1650; J2704; J3475; J7030; J7040; J7120; Q9966

== ENCOUNTER 2021-04-30 18:57 | Inpatient (IN) | payer MEDICARE, MEDICAID, SELFPAY ==
--- NOTE | ~2021-04-30 | XR_ITS ---
XR abdomen/kub 1V 05/03/2021 17:03 Indication: Kidney stones. Constipation. Procedure: KUB Comparison: 04/13/2021 Findings: Bowel gas pattern is nonobstructive. There is a large stool ball in the rectum. Interval pl acement of left internal ureteral stent. There is a large stone near the expected location of the lef t UPJ measuring 1.8 x 1.1 cm. There are left renal stones. There is an upper pole stone in the right kidney. Bowel pattern is nonobstructive. There is moderate lumbar spondylosis with dextroscoliosis. Impression: 1: Bilateral nephrolithiasis with probable left UPJ stone measuring up to 1.8 cm. 2: Fecal impaction of the rectum with large stool ball measuring approximately 12.7 cm transversely. Reviewed, dictated and finalized at location A. DING ASSOCIATE Impression: 1: Bilateral nephrolithiasis with probable left UPJ stone measuring up to 1.8 c m. 2: Fecal impaction of the rectum with large stool ball measuring approximately 12.7 cm transversely.
--- NOTE | ~2021-04-30 | US_ITS ---
EXAMINATION: US renal BI DATE: 05/03/2021 17:15 INDICATION: Large renal stones. Renal infection. TECHNIQUE: Multiple ultrasound grayscale images of the kidneys were obtained. COMPARISON: None. FINDINGS: The right kidney measures 11.0 x 5.7 x 4.2 cm. The left kidney measures 9.1 x 4.3 x 5.5 cm. The kidne ys demonstrate normal echogenicity. 8 mm shadowing stone at the upper pole of the right kidney. Mild left hydronephrosis. Linear echogenic structure at the left renal hilum which appears to correspond t o a portion of a left internal ureteral stent.. The loop of a left internal ureteral stent is seen wi thin the otherwise normal-appearing bladder. IMPRESSION: 1. Mild left hydronephrosis with left internal ureteral stent. 2. Nonobstructing 8 mm right renal stone. Reviewed, dictated and finalized at location A. LLE TYPIST
--- NOTE | ~2021-04-30 | XR_ITS ---
EXAMINATION: XR chest 2V EXAM DATE: 04/30/2021 20:54 INDICATION: Weakness, dementia, hypertension. Change in abilities. TECHNIQUE: Frontal and lateral projections of the chest obtained and reviewed. Comparison is made to prior examination from 04/12/2021. FINDINGS: There is no focal acute air space disease. Superior mediastinal soft tissue density prob ably goiter. Lungs are hyperinflated. There is tortuosity of the aorta. Cardiomediastinal silhouette is normal. There is no pneumothorax suspected. There are no pleural effusions. Left double-J ureteral stent proximal loop identified. Large left nephrolithiasis. IMPRESSION: No acute cardiopulmonary findings. Reviewed, dictated and finalized at location A. IOT MISSILE AIR DEFENSE ARTILLERY
--- NOTE | ~2021-04-30 | XR_ITS ---
EXAMINATION: XR abdomen/kub 1V INDICATION: Fecal impaction TECHNIQUE: Supine view the abdomen is obtained COMPARISON: 05/03/2021 FINDINGS: Fecal impaction persists without significant change. There are no dilated loops of bowel. A left internal ureteral stent is in expected position. There is a stone adjacent to the proximal aspe ct of the stent. A 3 mm stone is noted in the right kidney. The visualized lung bases are clear. IMPRESSION: 1. Unchanged fecal impaction. 2. Stable stone adjacent to the left internal ureteral stent. Reviewed, dictated and finalized at location A. MANAGEMENT DIRECTOR
--- NOTE | ~2021-04-30 | XR_ITS ---
EXAMINATION: XR abdomen/kub 1V INDICATION: Fecal impaction TECHNIQUE: Supine views of the abdomen were obtained on 2 radiographs. COMPARISON: 05/06/2021 FINDINGS: There is persistent fecal material in the rectum without significant change. There are no d ilated loops of bowel. No free intraperitoneal gas is identified. A left internal ureteral stent in e xpected position. A 14 mm stone is again seen adjacent to the proximal aspect. The visualized lung ba ses are clear. IMPRESSION: 1. Stable fecal impaction. 2. Left ureteral stent in expected position with unchanged stone adjacent to the proximal stent. Reviewed, dictated and finalized at location A. HOIST ENGINEER IMPRESSION: 1. Stable fecal impaction. 2. Left ureteral stent in expected position with unchanged stone adjacent to th e proximal stent.
--- NOTE | ~2021-04-30 | CT_ITS ---
EXAMINATION: CT brain wo con EXAM DATE: 04/30/2021 20:46 INDICATION: Altered mental status. TECHNIQUE: Spiral CT of the head was performed without contrast. Axial, coronal and sagittal images were reviewed. The dose-length product (DLP) for this examination was 605.33 mGy-cm. The exposure w as tailored according to patient size, and iterative reconstruction (ASIR) was used as additional dos e reduction technique. Comparison is made to prior examination from 04/12/2021. FINDINGS: There is no acute intraparenchymal hemorrhage. No evidence of intraparenchymal brain mass lesion. No evidence of acute infarction. Please note that initial head CT has limited sensitivity f or small or acute infarctions. There is moderate periventricular and subcortical hypodensity, nonspec ific but probably related to small vessel ischemic disease. There is moderate to severe prominence of the sulci and ventricles related to cerebral atrophy. 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 There are no extra-axial collections. There is no mass effect or midline shift. Patient has had right-sided ocular lens surgery. Soft tissue is unremarkable. The visualized sinuses and mastoi d air cells are well aerated. There is no significant interval change. IMPRESSION: 1. No acute intracranial findings. 2. Chronic age related findings. Reviewed, dictated and finalized at location A. SPORTATION PLANNING TECHNICIAN
--- NOTE | ~2021-04-30 | XR_ITS ---
EXAMINATION: XR abdomen/kub 1V INDICATION: Fecal impaction TECHNIQUE: Supine views of the abdomen were obtained on 2 radiographs. COMPARISON: 05/05/2021 FINDINGS: There is persistent material in the rectum with possible slight decrease in volume. A left internal ureteral stent is in expected position. There is a stone adjacent to the proximal aspe ct of the stent. No dilated bowel is identified. The visualized lung bases are clear. IMPRESSION: 1. Fecal impaction with possible slight improvement. 2. Left internal ureteral stent in expected position with stable stone adjacent to the proximal stent . Reviewed, dictated and finalized at location A. CAL DOCTOR IMPRESSION: 1. Fecal impaction with possible slight improvement. 2. Left internal ureteral stent in expected position with stable stone adjacent to the proximal stent.
[2021-04-30 19:10] VITALS: BP 132/93; PULSE 102; RESP 13; TEMP 36.2; O2SAT 100
--- NOTE | 2021-04-30 19:54 | PC.NURSE ---
Assuming care of pt
--- NOTE | 2021-04-30 19:59 | ECG_ITS ---
Measurements Intervals [place] Rate: 95 P: 78 IN: 179 QRS: -49 QRSD: 68 T: 70 QT: 355 QTc: 448 Interpretive Statements SINUS RHYTHM LEFT AXIS DEVIATION EARLY PRECORDIAL R/S TRANSITION INFERIOR INFARCT, AGE INDETERMINATE BASELINE ARTIFACT- II, III, AVF, V1-V2 ABNORMAL ECG Electronically Signed On 05-01-2021 17:21:31 REGIONAL TRAINER by Abel Jernigan D.O.
[2021-04-30 20:18] LABS: Basophils Percent Auto 0.2 % (0.2-1.2); Eosinophils Percent Auto 0.3 % (0-4.4); Hematocrit 43.6 % (37.0-47.0); Hemoglobin 13.2 g/dL (12.0-15.0); Immature Granulocyte Absolute 0.04 K/mm3 (0.00-0.031); Immature Granulocyte Percent A 0.4 % (0-0.5); Lymphocytes Absolute Auto 1.34 K/mm3 (0.9-3.2); Lymphocytes Percent Auto 13.5 % (18.3-44.2); Mean Corpuscular HGB Conc 30.3 g/dl (32-36); Mean Corpuscular Volume 89.3 fl (80-100); Mean Platelet Volume 10.1 fl (7.4-10.4); Monocytes Absolute Auto 0.7 K/mm3 (0.1-0.6); Monocytes Percent Auto 6.6 % (2.6-8.5); Neutrophils Absolute Auto 7.9 K/mm3 (1.3-6.7); Platelet Count Result 461 k/mm3 (150-375); Red Blood Count 4.88 M/mm3 (4.2-5.4); Red Cell Distribution Width 15.3 % (11.5-14.5)
[2021-04-30 20:40] LABS: Alanine Aminotransferase 14 U/L (4-35); Albumin Level 3.6 g/dL (3.5-5.1); Alkaline Phosphatase 140 U/L (38-126); Anion Gap 7 mmol/L (8-16); Aspartate Amino Transferase 20 U/L (14-36); Bilirubin,Total 0.7 mg/dL (0.2-1.3); Blood Urea Nitrogen 32 mg/dL (7-17); Calcium 10.1 mg/dL (8.4-10.2); Carbon Dioxide 35 mmol/L (22-30); Chloride 121 mmol/L (98-107); Estimated CRCL calculation 24 ml/min; Estimated Glomerular Filt Rate 52; Glucose 112 mg/dL (65-110); Potassium 3.7 mmol/L (3.4-5.0); Sodium 163 mmol/L (137-145)
[2021-04-30] MEDS: SODIUM CHLORIDE 0.9% IV 500 ML 999 ML IV CONT ×2 (20:55)
[2021-04-30 20:57] VITALS: PULSE 99
--- NOTE | 2021-04-30 21:08 | PC.NURSE ---
Attempted to straight cath pt no urine out.
[2021-04-30 21:22] LABS: Lactic Acid Reflex 1.9 mmol/L (0.7-2.1)
--- NOTE | 2021-04-30 21:31 | ED.WEAKNESS ---
HPI - Weakness General Chief complaint: Weakness Stated complaint: lethargy, failure to thrive Time Seen by Provider: 04/30/21 20:13 Source: EMS, RN notes reviewed and old records reviewed History of Present Illness HPI Narrative: Patient presents with failure to thrive and lethargy. Patient was recently admitted hospital for UTI and ureteral stone requiring stent placement. She is discharged to a nursing home facility. Family reports that they have noted decreased mentation and requested the patient be evaluated in the emergency room. Patient mumbles when answering questions. Related Data Home Medications Medication Instructions Recorded Confirmed Lactobacillus acidophilus 1 cap PO BID 04/12/21 05/01/21 acetaminophen 650 mg PO Q6H PRN 04/12/21 05/01/21 albuterol sulfate [Ventolin HFA] 2 puff INHALATION Q4-6H PRN 04/12/21 05/01/21 amlodipine 2.5 mg PO DAILY 04/12/21 05/01/21 aspirin 81 mg PO DAILY 04/12/21 05/01/21 atorvastatin 10 mg PO HS 04/12/21 05/01/21 buspirone 7.5 mg PO BID 04/12/21 05/01/21 cholecalciferol (vitamin D3) 2,000 unit PO DAILY 04/12/21 05/01/21 [Vitamin D3] cyanocobalamin (vitamin B-12) 1,000 mcg PO DAILY 04/12/21 05/01/21 docusate sodium 100 mg PO BID 04/12/21 05/01/21 donepezil [Aricept] 10 mg PO HS 04/12/21 05/01/21 famotidine 20 mg PO DAILY 04/12/21 05/01/21 ferrous sulfate 325 mg PO BID 04/12/21 05/01/21 hydrocodone-acetaminophen 1 tablet PO TID PRN 04/12/21 05/01/21 methimazole 10 mg PO DAILY 04/12/21 05/01/21 ondansetron HCl [Zofran] 4 mg PO Q6H PRN 04/12/21 05/01/21 quetiapine 12.5 mg PO BID 04/12/21 05/01/21 Allergies Allergy/AdvReac Type Severity Reaction Status Date / Time hydrochlorothiazide Allergy Unknown Verified 05/01/21 01:52 meperidine Allergy Unknown Verified 05/01/21 01:52 moxifloxacin Allergy Unknown Verified 05/01/21 01:52 oxycodone Allergy Unknown Verified 05/01/21 01:52 penicillamine Allergy Unknown Verified 05/01/21 01:52 Penicillins Allergy Unknown Verified 05/01/21 01:52 Review of Systems Review of Systems: ROS unobtainable: Yes unobtainable due to mental status PMFSH Past Medical History Medical History Anxiety Asthma Dementia Depressive disorder History of seizure History of thyrotoxicosis Hyperlipidemia Hypertension Hypothyroidism Type 2 diabetes mellitus Vitamin D deficiency Surgical History Surgical History Surgical history unknown Family History Family History Other Unknown family medical history Social History Social History Social History: Power of hot roll laminator: Porter Bettencourt, friend. Code status: Full code. Smoking status: Unknown if ever smoked Alcohol intake: unknown Substance use: unknown Substance use type: unknown Additional living arrangements comments: The patient is currently at [facility]. Spiritual care concerns: No Exam Narrative: GENERAL: Well-appearing, well-nourished, and in no acute distress. HEAD: Normocephalic, atraumatic. EYES: PERRLA and EOMI. ENT: Nares clear, no rhinorrhea or epistaxis. Mucous membranes moist. NECK: Supple. No masses. No JVD CHEST: Clear to auscultation. No respiratory distress. No wheezes rales or rhonchi HEART: Regular rate and rhythm. No murmur heard. Normal peripheral pulses. ABDOMEN: Soft, nontender, nondistended, normal active bowel sounds. EXTREMITIES: Normal range of motion. No edema. SKIN: Warm, dry, no rash. NEURO: No focal deficits. Alert Course Reevaluation(s) Reevaluation #1: Patient is resting comfortably labs returned with hyponatremia and acute kidney injury patient is likely severely volume went down. Due to family concern for altered mental status should be admitted for further management Date: 04/30/21 Time: 21:
[2021-04-30 22:07] VITALS: BP 145/95; PULSE 99; RESP 14; O2SAT 98
[2021-04-30 23:01] VITALS: BP 138/85; PULSE 94; RESP 16; O2SAT 96
[2021-05-01 01:06] VITALS: BP 141/84; PULSE 93; RESP 14; O2SAT 95
--- NOTE | 2021-05-01 01:20 | ADMGEN ---
This patient, Sridevi Mckinney, was admitted to 2 Medical Room 259-01. Patient/family oriented to hospital policies and general routines including ID bracelet, bed and alarms, visiting hours, pain management, procedures, bathroom and other care routines, personal items, smoking policy, room service/diet, and visiting hours. Information on how to activate the Rapid Response Team has been discussed. Patient/Family are encouraged to report perceived risks to care and to ask questions if they do not understand what they are told or what they should do.
[2021-05-01] MEDS: SODIUM CHLORIDE 0.9% IV 1,000 ML 150 ML IV CONT (01:25)
[2021-05-01 01:52] VITALS: BP 153/89; PULSE 82; RESP 20; TEMP 36.4; O2SAT 98
[2021-05-01 01:53] VITALS: BMI 20.8
[2021-05-01] MEDS: SODIUM CHLORIDE 0.9% IV 1,000 ML 500 ML IV CONT (03:43)
[2021-05-01 04:04] LABS: Sodium 157 mmol/L (137-145)
--- NOTE | 2021-05-01 05:00 | PM.IMHP ---
H&P: HPI History of Present Illness Date/Time: 05/01/21 05:00 Chief Complaint: Increased lethargy Narrative: 85-year-old female with a past medical history of dementia, hypertension, diabetes and hypothyroidism who presented to the ER from [facility] due to not eating or drinking and being more lethargic. The patient had been hospitalized 04/13/2021 through 04/18/2021 due to the same symptoms. She was treated for UTI and acute kidney injury at that time. Her urine culture grew out E coli and Proteus Mirabillis. She also had a left UVJ stone with stent placement 04/14/2021. She was discharged to correction on cefdinir for an additional 10 days. The patient had a Contreras catheter in placed in the ER but the patient's bladder was empty. The patient has arrived on the medical floor and nursing staff has been unable to place a catheter now. In the ER the patient was noted to be severely hypernatremic. Her sodium had is acutely increased over the last 12 days from prior value of 147. She received 1 L of normal saline bolus in the ER and normal saline 150 mL an hour with a repeat sodium approximately a hours later of 157. Nursing staff tells me that the patient is pocketing food in her cheeks. She will not swallow the food. Review of Systems Review of Systems: Unable to obtain due to patient's dementia. [facility] Past Medical History Medical History Anxiety Asthma Dementia Depressive disorder History of seizure History of thyrotoxicosis Hyperlipidemia Hypertension Hypothyroidism Type 2 diabetes mellitus Vitamin D deficiency Surgical History Surgical History Surgical history unknown Family History Family History Other Unknown family medical history Social History Social History (Updated 05/01/21 @ 05:14 by Joycelyn Barber DO) Social History: Power of title attorney: Porter Bettencourt, friend. Code status: Full code. Smoking status: Unknown if ever smoked Alcohol intake: unknown Substance use: unknown Substance use type: unknown Additional living arrangements comments: The patient is currently at [facility]. Spiritual care concerns: No Meds Home Medications and Allergies Home Medications Medication Instructions Recorded Confirmed Type Lactobacillus acidophilus 1 cap PO BID 04/12/21 05/01/21 History acetaminophen 650 mg PO Q6H PRN 04/12/21 05/01/21 History albuterol sulfate [Ventolin HFA] 2 puff INHALATION Q4-6H PRN 04/12/21 05/01/21 History amlodipine 2.5 mg PO DAILY 04/12/21 05/01/21 History aspirin 81 mg PO DAILY 04/12/21 05/01/21 History atorvastatin 10 mg PO HS 04/12/21 05/01/21 History buspirone 7.5 mg PO BID 04/12/21 05/01/21 History cholecalciferol (vitamin D3) 2,000 unit PO DAILY 04/12/21 05/01/21 History [Vitamin D3] cyanocobalamin (vitamin B-12) 1,000 mcg PO DAILY 04/12/21 05/01/21 History docusate sodium 100 mg PO BID 04/12/21 05/01/21 History donepezil [Aricept] 10 mg PO HS 04/12/21 05/01/21 History famotidine 20 mg PO DAILY 04/12/21 05/01/21 History ferrous sulfate 325 mg PO BID 04/12/21 05/01/21 History hydrocodone-acetaminophen 1 tablet PO TID PRN 04/12/21 05/01/21 History methimazole 10 mg PO DAILY 04/12/21 05/01/21 History ondansetron HCl [Zofran] 4 mg PO Q6H PRN 04/12/21 05/01/21 History quetiapine 12.5 mg PO BID 04/12/21 05/01/21 History Allergies Allergy/AdvReac Type Severity Reaction Status Date / Time hydrochlorothiazide Allergy Unknown Verified 05/01/21 01:52 meperidine Allergy Unknown Verified 05/01/21 01:52 moxifloxacin Allergy Unknown Verified 05/01/21 01:52 oxycodone Allergy Unknown Verified 05/01/21 01:52 penicillamine Allergy Unknown Verified 05/01/21 01:52 Penicillins Allergy Unknown Verified 05/01/21 01:52 Vital Signs Vital Signs - 24 hr 04/30/21 19:10 04/12
[2021-05-01 06:18] VITALS: BP 138/97; PULSE 97; RESP 16; TEMP 36.1; O2SAT 93
--- NOTE | 2021-05-01 10:32 | PM.IMHP ---
H&P: HPI History of Present Illness Date/Time: 05/01/21 10:32 [facility] Past Medical History Medical History Anxiety Asthma Dementia Depressive disorder History of seizure History of thyrotoxicosis Hyperlipidemia Hypertension Hypothyroidism Type 2 diabetes mellitus Vitamin D deficiency Surgical History Surgical History Surgical history unknown Family History Family History Other Unknown family medical history Social History Social History (Updated 05/01/21 @ 05:14 by Joycelyn Barber DO) Social History: Power of research attorney: Porter Bettencourt, friend. Code status: Full code. Smoking status: Unknown if ever smoked Alcohol intake: unknown Substance use: unknown Substance use type: unknown Additional living arrangements comments: The patient is currently at [facility]. Spiritual care concerns: No Meds Home Medications and Allergies Home Medications Medication Instructions Recorded Confirmed Type Lactobacillus acidophilus 1 cap PO BID 04/12/21 05/01/21 History acetaminophen 650 mg PO Q6H PRN 04/12/21 05/01/21 History albuterol sulfate [Ventolin HFA] 2 puff INHALATION Q4-6H PRN 04/12/21 05/01/21 History amlodipine 2.5 mg PO DAILY 04/12/21 05/01/21 History aspirin 81 mg PO DAILY 04/12/21 05/01/21 History atorvastatin 10 mg PO HS 04/12/21 05/01/21 History buspirone 7.5 mg PO BID 04/12/21 05/01/21 History cholecalciferol (vitamin D3) 2,000 unit PO DAILY 04/12/21 05/01/21 History [Vitamin D3] cyanocobalamin (vitamin B-12) 1,000 mcg PO DAILY 04/12/21 05/01/21 History docusate sodium 100 mg PO BID 04/12/21 05/01/21 History donepezil [Aricept] 10 mg PO HS 04/12/21 05/01/21 History famotidine 20 mg PO DAILY 04/12/21 05/01/21 History ferrous sulfate 325 mg PO BID 04/12/21 05/01/21 History hydrocodone-acetaminophen 1 tablet PO TID PRN 04/12/21 05/01/21 History methimazole 10 mg PO DAILY 04/12/21 05/01/21 History ondansetron HCl [Zofran] 4 mg PO Q6H PRN 04/12/21 05/01/21 History quetiapine 12.5 mg PO BID 04/12/21 05/01/21 History Allergies Allergy/AdvReac Type Severity Reaction Status Date / Time hydrochlorothiazide Allergy Unknown Verified 05/01/21 01:52 meperidine Allergy Unknown Verified 05/01/21 01:52 moxifloxacin Allergy Unknown Verified 05/01/21 01:52 oxycodone Allergy Unknown Verified 05/01/21 01:52 penicillamine Allergy Unknown Verified 05/01/21 01:52 Penicillins Allergy Unknown Verified 05/01/21 01:52 Vital Signs Vital Signs - 24 hr 04/30/21 19:10 04/30/21 20:57 04/30/21 22:07 Temperature 97.2 F L Pulse Rate 102 H 99 99 Respiratory Rate 13 14 Blood Pressure 132/93 H 145/95 H Pulse Oximetry 100 98 04/30/21 23:01 05/01/21 01:06 05/01/21 01:52 Temperature 97.5 F L Pulse Rate 94 93 82 Respiratory Rate 16 14 20 Blood Pressure 138/85 141/84 H 153/89 H Pulse Oximetry 96 95 98 05/01/21 06:18 Temperature 97.0 F L Pulse Rate 97 Respiratory Rate 16 Blood Pressure 138/97 H Pulse Oximetry 93 H&P: Results Labs Labs: Short CBC 04/30/21 Range/Units 20:12 WBC 10.0 (4.5-10.0) K/mm3 Hgb 13.2 (12.0-15.0) g/dL Hct 43.6 (37.0-47.0) % Plt Count 461 H (150-375) k/mm3 BMP 04/30/21 05/01/21 20:12 03:49 Sodium 163 H* 157 H Potassium 3.7 Chloride 121 H Carbon Dioxide 35 H BUN 32 H D Creatinine 1.20 H Glucose 112 H Calcium 10.1 Liver Function 04/30/21 Range/Units 20:12 Total Bilirubin 0.7 (0.2-1.3) mg/dL AST 20 (14-36) U/L ALT 14 (4-35) U/L Alkaline Phosphatase 140 H (38-126) U/L Albumin 3.6 (3.5-5.1) g/dL
[2021-05-01] MEDS: SODIUM CHLORIDE 0.9% IV 1,000 ML 100 ML IV CONT (11:59)
--- NOTE | 2021-05-01 12:16 | PM.IMPN ---
Progress Note: A&P Assessment and Plan (1) Hypernatremia: Code(s): E87.0 - Hyperosmolality and hypernatremia Status: Acute Assessment and Plan: Patient received NS Now has been switched to D5W Daily BMP (2) Hypovolemia: Code(s): E86.1 - Hypovolemia Status: Acute Assessment and Plan: Patient with poor p.o. intake also with altered mental status Receiving IV fluid (3) Altered mental status: Qualifiers: Altered mental status type: unspecified Qualified Code(s): R41.82 - Altered mental status, unspecified Code(s): R41.82 - Altered mental status, unspecified Status: Acute Assessment and Plan: Unchanged Likely to be endocrine metabolic encephalopathy (4) Acute UTI: Code(s): N39.0 - Urinary tract infection, site not specified Status: Acute Assessment and Plan: Patient has growth of Proteus and E coli in the past have been started on ertapenem Continue to monitor. Subjective Date/time seen: 05/01/21 12:16 Objective Data Vital Signs Vital Signs: Vital Signs - 24 hr 04/30/21 19:10 04/30/21 20:57 04/30/21 22:07 Temperature 97.2 F L Pulse Rate 102 H 99 99 Respiratory Rate 13 14 Blood Pressure 132/93 H 145/95 H Pulse Oximetry 100 98 04/30/21 23:01 05/01/21 01:06 05/01/21 01:52 Temperature 97.5 F L Pulse Rate 94 93 82 Respiratory Rate 16 14 20 Blood Pressure 138/85 141/84 H 153/89 H Pulse Oximetry 96 95 98 05/01/21 06:18 Temperature 97.0 F L Pulse Rate 97 Respiratory Rate 16 Blood Pressure 138/97 H Pulse Oximetry 93 Intake/Output Intake/Output: Intake & Output 04/28/21 04/29/21 04/30/21 05/01/21 23:59 23:59 23:59 23:59 Intake Total 1000 1150 Output Total 0 Balance 1000 1150 Meds/Results Medications: Active Medications Generic Name Dose Route Start Last Admin Trade Name Freq PRN Reason Stop Dose Admin Acetaminophen 1,000 mg in 100 mls @ 400 mls/hr 04/30/21 22:40 Ofirmev 1,000 Mg Ivpb IVPB 05/01/21 22:39 Q6H PRN Mild Pain (1-3) or Fever Sodium Chloride 1,000 mls @ 100 mls/hr 04/30/21 22:40 05/01/21 11:59 Normal Saline Iv IV CONT 100 mls/hr .Q10H LUCINA Administration Radiology Results: ITS Impressions Head CT 04/30/21 20:47 IMPRESSION: 1. No acute intracranial findings. 2. Chronic age related findings. Chest X-Ray 04/30/21 20:55 IMPRESSION: No acute cardiopulmonary findings. Labs Labs: Laboratory Results - last 24 hr 04/30/21 04/30/21 04/30/21 20:12 20:12 20:59 WBC 10.0 RBC 4.88 Hgb 13.2 Hct 43.6 MCV 89.3 MCH 27.0 MCHC 30.3 L RDW 15.3 H Plt Count 461 H MPV 10.1 Immature Gran % (Auto) 0.4 Neut % (Auto) 79.0 H Lymph % (Auto) 13.5 L Carson % (Auto) 6.6 Eos % (Auto) 0.3 Baso % (Auto) 0.2 Lymph # (Auto) 1.34 Carson # (Auto) 0.7 H Eos # (Auto) 0.0 Baso # (Auto) 0.0 Abs Immat Gran (auto) 0.04 H Absolute Neuts (auto) 7.9 H Absolute Nucleated RBC 0.0 Nucleated RBC % 0.0 Sodium 163 H* Potassium 3.7 Chloride 121 H Carbon Dioxide 35 H Anion Gap 7 L BUN 32 H D Creatinine 1.20 H Estim Creat Clear Calc 24 Estimated GFR 52 L Glucose 112 H Lactic Acid 1.9 Calcium 10.1 Total Bilirubin 0.7 AST 20 ALT 14 Alkaline Phosphatase 140 H Total Protein 7.0 Albumin 3.6 05/01/21 03:49 WBC RBC Hgb Hct MCV MCH MCHC RDW Plt Count MPV Immature Gran % (Auto) Neut % (Auto) Lymph % (Auto) Carson % (Auto) Eos % (Auto) Baso % (Auto) Lymph # (Auto) Carson # (Auto) Eos # (Auto) Baso # (Auto) Abs Immat Gran (auto) Absolute Neuts (auto) Absolute Nucleated RBC Nucleated RBC % Sodium 157 H Potassium Chloride Carbon Dioxide Anion Gap BUN Creatinine Estim Creat Clear Calc Estimated GFR Glucose Lactic Acid Calcium Total Bilirubin AST ALT Alkaline
[2021-05-01 14:23] LABS: Hematocrit 39.1 % (37.0-47.0); Hemoglobin 11.7 g/dL (12.0-15.0); Mean Corpuscular HGB Conc 29.9 g/dl (32-36); Mean Corpuscular Hemoglobin 26.7 pg (26-34); Mean Corpuscular Volume 89.1 fl (80-100); Mean Platelet Volume 10.5 fl (7.4-10.4); Platelet Count Result 391 k/mm3 (150-375); Red Blood Count 4.39 M/mm3 (4.2-5.4); Red Cell Distribution Width 15.2 % (11.5-14.5); White Blood Count 8.9 K/mm3 (4.5-10.0)
[2021-05-01 14:40] LABS: Anion Gap 3 mmol/L (8-16); Blood Urea Nitrogen 26 mg/dL (7-17); Calcium 9.2 mg/dL (8.4-10.2); Carbon Dioxide 30 mmol/L (22-30); Chloride 126 mmol/L (98-107); Estimated CRCL calculation 31 ml/min; Estimated Glomerular Filt Rate > 60; Glucose 108 mg/dL (65-110); Potassium 4.2 mmol/L (3.4-5.0); Sodium 159 mmol/L (137-145)
[2021-05-01 14:45] VITALS: BP 146/81; PULSE 81; RESP 18; TEMP 36.5
[2021-05-01] MEDS: ERTAPENEM 1 GM/NS 50 ML 1 GM/50 ML BAG IVPB (17:19)
[2021-05-01] MEDS: DEXTROSE 5% 1,000 ML 1,000 ML 65 ML IV CONT (17:48)
[2021-05-01 22:12] VITALS: BP 150/85; PULSE 94; RESP 16; TEMP 36.4; O2SAT 98
[2021-05-02 05:36] VITALS: BP 133/86; PULSE 55; RESP 16; TEMP 36.1; O2SAT 100
[2021-05-02] MEDS: DEXTROSE 5% 1,000 ML 1,000 ML 65 ML IV CONT (09:02)
--- NOTE | 2021-05-02 09:40 | PM.IMPN ---
Progress Note: A&P Assessment and Plan (1) Hypernatremia: Code(s): E87.0 - Hyperosmolality and hypernatremia Status: Acute Assessment and Plan: Patient received NS Now has been switched to D5W Daily BMP Clinically improved (2) Hypovolemia: Code(s): E86.1 - Hypovolemia Status: Acute Assessment and Plan: Patient with poor p.o. intake also with altered mental status Receiving IV fluid (3) Altered mental status: Qualifiers: Altered mental status type: unspecified Qualified Code(s): R41.82 - Altered mental status, unspecified Code(s): R41.82 - Altered mental status, unspecified Status: Acute Assessment and Plan: Improved Likely to be endocrine metabolic encephalopathy (4) Acute UTI: Code(s): N39.0 - Urinary tract infection, site not specified Status: Acute Assessment and Plan: Will discontinue Levaquin as a final report for urine culture shows no growth. Patient has growth of Proteus and E coli in the past have been started on ertapenem Continue to monitor. Subjective Date/time seen: 05/02/21 09:40 Review of Systems Review of Systems: ROS unobtainable: Yes unobtainable due to mental status (Delirious) Exam Const: General: comfortable, no acute distress, well developed, alert and awake Nutritional Appearance: average body habitus Orientation/consciousness: Other orientation findings (Delirious) HENMT: Head: normal to inspection, normocephalic and atraumatic Ears: hearing grossly normal bilaterally Face and sinus: normal facial exam Eyes: General: appearance normal, both eyes and all related structures Pupils: Equal, round and reactive pupils present EOM: EOMs intact bilaterally Neck: Neck: full ROM, no lymphadenopathy and no JVD Thyroid: thyroid normal Lymphatic: no lymphadenopathy noted Resp: Effort & Inspection: normal respiratory effort and able to speak in complete sentences Auscultation: clear to auscultation bilaterally Cardio: Jugular venous distension: no JVD Rate: regular rate Rhythm: regular rhythm Heart sounds: S1 normal heart sound present and S2 normal heart sound present GI: GI Palp: Yes Soft to palpation and Yes No hepatosplenomegaly present : General: Yes deferred Skin: Rashes: no rashes Wounds: no wounds Neuro: General: CN's II-XI intact bilaterally Cranial nerves: Yes CN's II-XII intact bilaterally and Yes Equal, round and reactive pupils present Cognition (Neuro): abnormal cognition Motor exam (neuro): 5/5 motor strength present throughout Extrem: General: normal to inspection, full ROM, no joint enlargement and no pedal edema Objective Data Vital Signs Vital Signs: Vital Signs - 24 hr 05/01/21 14:45 05/01/21 22:12 05/02/21 05:36 Temperature 97.7 F 97.6 F 96.9 F L Pulse Rate 81 94 55 L Respiratory Rate 18 16 16 Blood Pressure 146/81 H 150/85 H 133/86 Pulse Oximetry 98 100 Intake/Output Intake/Output: Intake & Output 04/29/21 04/30/21 05/01/21 05/02/21 23:59 23:59 23:59 23:59 Intake Total 1000 1560 1000 Output Total 0 Balance 1000 1560 1000 Meds/Results Medications: Active Medications Generic Name Dose Route Start Last Admin Trade Name Freq PRN Reason Stop Dose Admin Dextrose 1,000 mls @ 65 mls/hr 05/01/21 15:30 05/02/21 09:02 Dextrose 5% 1,000 Ml IV CONT 65 mls/hr .[id number] LUCINA Administration Ertapenem 1 gm in 50 mls @ 100 mls/hr 05/01/21 16:00 05/01/21 17:47 Invanz 1 Gm/Ns 50 Ml IVPB Infused Q24H LUCINA Infusion Radiology Results: ITS Impressions Head CT 04/30/21 20:47 IMPRESSION: 1. No acute intracranial findings. 2. Chronic age related findings. Chest X-Ray 04/30/21 20:55 IMPRESSION: No acute cardiopulmonary findings. Labs Labs: Laboratory Results - last 24 hr 05/01/21 05/01/21 13:56 13:57 WBC 8.9 RBC 4.39 Hgb 11.7 L Hct 39.1 MCV 89.1 MCH 26.7 MCHC 29.9 L RDW 1
[2021-05-02 12:27] VITALS: BMI 20.8
[2021-05-02 14:00] VITALS: BP 138/69; PULSE 63; RESP 16; TEMP 36.4; O2SAT 90
--- NOTE | 2021-05-02 14:52 | PC.NURSE ---
This nurse contacted an Agency nurse at [facility] about the patients baseline habits and diet. According to the nurse the patient is at baseline alert and oriented to person, on a mechanical soft diet but does not know the status of the patients eating habits. This nurse called and informed Dr. Rose of the above information and she stated to make sure the patient is on a mechanical soft diet and see how she does.
[2021-05-02 15:02] LABS: Basophils Percent Auto 0.1 % (0.2-1.2); Eosinophils Absolute Auto 0.1 K/mm3 (0-0.3); Eosinophils Percent Auto 1.9 % (0-4.4); Hematocrit 40.2 % (37.0-47.0); Hemoglobin 12.1 g/dL (12.0-15.0); Immature Granulocyte Absolute 0.02 K/mm3 (0.00-0.031); Immature Granulocyte Percent A 0.3 % (0-0.5); Lymphocytes Absolute Auto 1.67 K/mm3 (0.9-3.2); Lymphocytes Percent Auto 24.4 % (18.3-44.2); Mean Corpuscular HGB Conc 30.1 g/dl (32-36); Mean Corpuscular Hemoglobin 26.9 pg (26-34); Mean Corpuscular Volume 89.5 fl (80-100); Mean Platelet Volume 10.3 fl (7.4-10.4); Monocytes Absolute Auto 0.4 K/mm3 (0.1-0.6); Monocytes Percent Auto 5.4 % (2.6-8.5); Neutrophils Absolute Auto 4.7 K/mm3 (1.3-6.7); Neutrophils Percent Auto 67.9 % (45.5-73.1); Platelet Count Result 307 k/mm3 (150-375); Red Blood Count 4.49 M/mm3 (4.2-5.4); Red Cell Distribution Width 15.1 % (11.5-14.5); White Blood Count 6.9 K/mm3 (4.5-10.0)
[2021-05-02 15:17] LABS: Anion Gap 5 mmol/L (8-16); Blood Urea Nitrogen 19 mg/dL (7-17); Calcium 9.4 mg/dL (8.4-10.2); Carbon Dioxide 29 mmol/L (22-30); Chloride 115 mmol/L (98-107); Estimated CRCL calculation 31 ml/min; Estimated Glomerular Filt Rate > 60; Glucose 116 mg/dL (65-110); Potassium 3.1 mmol/L (3.4-5.0); Sodium 149 mmol/L (137-145)
[2021-05-02] MEDS: ERTAPENEM 1 GM/NS 50 ML 1 GM/50 ML BAG IVPB (16:54)
[2021-05-02 19:39] VITALS: BP 148/85; PULSE 63; RESP 18; TEMP 37; O2SAT 90
[2021-05-03] MEDS: DEXTROSE 5% 1,000 ML 1,000 ML 65 ML IV CONT (00:45)
[2021-05-03 03:39] VITALS: BP 162/43; PULSE 63; RESP 17; TEMP 36.1; O2SAT 90
[2021-05-03 08:48] LABS: Hematocrit 42.7 % (37.0-47.0); Hemoglobin 12.9 g/dL (12.0-15.0); Mean Corpuscular HGB Conc 30.2 g/dl (32-36); Mean Corpuscular Hemoglobin 26.9 pg (26-34); Mean Corpuscular Volume 89.1 fl (80-100); Mean Platelet Volume 10.7 fl (7.4-10.4); Platelet Count Result 266 k/mm3 (150-375); Red Blood Count 4.79 M/mm3 (4.2-5.4); Red Cell Distribution Width 14.8 % (11.5-14.5); White Blood Count 5.7 K/mm3 (4.5-10.0)
[2021-05-03 09:14] LABS: Anion Gap 7 mmol/L (8-16); Blood Urea Nitrogen 18 mg/dL (7-17); Calcium 9.5 mg/dL (8.4-10.2); Carbon Dioxide 31 mmol/L (22-30); Chloride 111 mmol/L (98-107); Estimated CRCL calculation 31 ml/min; Estimated Glomerular Filt Rate > 60; Glucose 102 mg/dL (65-110); Potassium 3.2 mmol/L (3.4-5.0); Sodium 149 mmol/L (137-145)
[2021-05-03] MEDS: DOCUSATE SODIUM 100 MG CAPSULE PO ×2 (09:17→16:21)
[2021-05-03] MEDS: busPIRone HCL 5 MG TABLET PO ×2 (09:17→22:30)
[2021-05-03] MEDS: QUEtiapine FUMARATE 12.5 MG TABLET PO ×2 (09:17→16:21)
[2021-05-03] MEDS: ASPIRIN 81 MG ENTERIC TABLET PO (09:17)
[2021-05-03] MEDS: amLODIPine BESYLATE 2.5 MG TABLET PO (09:17)
[2021-05-03] MEDS: PANTOPRAZOLE SODIUM IV 40 MG VIAL IV PUSH ×2 (09:18→22:38)
[2021-05-03] MEDS: methiMAzole 10 MG TAB PO (09:18)
[2021-05-03] MEDS: busPIRone HCL 2.5 MG TABLET PO ×2 (09:18→22:38)
[2021-05-03] MEDS: POTASSIUM CHLORIDE 20 MEQ TABLET 40 MEQ PO (11:57)
[2021-05-03 13:01] LABS: Add Urine Microscopic? YES; Appearance Urine Turbid (Clear); Bilirubin Urine Negative (Negative); Blood Urine 2+ (Negative); Color Urine Amber (Yellow); Glucose Urine UA Negative (Negative); Ketones Urine Negative (Negative); Leukocyte Esterase Ur 3+ LEU/UL (Negative); Mucus Urine Few /lpf; Nitrate Urine Negative (Negative); Protein Urine 2+ mg/dL (Negative); RBC Urine 51-75 /hpf (0-2); Specific Grav Ur 1.014 (1.001-1.035); Squamous Epithelial Cell Urine Occasional /hpf (Few); WBC Clumps Urine Present /HPF; WBC Urine >75 /hpf
[2021-05-03 13:30] VITALS: BP 116/69; PULSE 68; RESP 14; TEMP 36.1; O2SAT 90
--- NOTE | 2021-05-03 13:30 | PCNFU ---
Nutrition Follow-Up Complete: Inadequate oral intake related to poor po as evidenced by 0% reported intake. goal: Meet estimated nutritional needs Patient has limited progress towards goal. We will continue current goal. Pt current nutrition is Minced and Moist, Level 5 with Ensure compact BID. Last recorded weight is 50 kg, no new weight to report. Bowel Motility:No BM to report. Labs Reviewed:BUN 18, K 3.2,Na 149 Meds Noted:Seroquel, Norvasc,Buspar, Colace, Protonix Skin:WNL Additional Notes: Patient seen today for nutrition follow up. Spoke with nursing today due to patient mentation. Oral Intake has been bites, breakfast today bites of applesauce and drank about 120 ml milk. Lunch today, no improvement. Patient does follow a mechanical soft diet at [place]. Diet supplements continue of Ensure compact BID providing an additional 220 kcals and 9 gms protein. PO intake encouraged. Agree with diet orders at this time. Monitoring: Will follow up every 3 days.
--- NOTE | 2021-05-03 14:34 | PM.IMPN ---
Progress Note: A&P Assessment and Plan (1) Sepsis: Code(s): A41.9 - Sepsis, unspecified organism Status: Acute Assessment and Plan: The patient is an 85 year old woman who lives at [facility], with a history of dementia, hypertension, who presented to the emergency room with decreased oral intake and generalized weakness over the last 2 days. Initial vitals showed blood pressure 132/93, tachycardia of 102 beats per minute, afebrile, normal oxygenation on room air. Elevated white blood cell count [id number] with elevated neutrophils at 79%, normal H&H, hypernatremia at 163 and chloride 121 with PINEDA have a creatinine 1.2, BUN 32 showing severe dehydration. Lactic normal at 1.9. Normal LFTs. CT head showed no acute intracranial findings, chronic age-related findings. Chest x-ray shows no acute cardiopulmonary findings. Patient was admitted into the hospital meeting criteria for sepsis with tachycardia, leukocytosis with elevated neutrophil count, PINEDA, metabolic encephalopathy in the setting of a urinary tract infection. Patient was started on IV ertapenem due to recent urinalysis showing positive for E coli and Proteus mirabilis and sensitivities for ertapenem. Urinalysis checked 05/03/21 since one was not taken on admission 05/01/21 which shows turbid urine, 3+ leukocyte esterase, WBCs greater than 75, WBC clumps present. Continue IV Ertapenem until Cultures return. Patient received IV normal saline which corrected her sodium too fast so was switched to D5W. Sodium has been stable at 149 over the last 12 hours. Continue monitoring sodium every 8 hours. Will continue D5W at 50 cc/hour Creatinine is improved from 1.2 to 0.9 with improving BUN daily. Patient is still not eating and drinking very much only about 10% of her meals. Could be due to underlying urinary tract infection or possible pain due to kidney stone. Continue monitoring. Appreciate urology is input. (2) Acute UTI: Code(s): N39.0 - Urinary tract infection, site not specified Status: Acute Assessment and Plan: See above. (3) Hypernatremia: Code(s): E87.0 - Hyperosmolality and hypernatremia Status: Acute Assessment and Plan: Clinically improving with D5W. Sodium stable at 149. Continue checking every 8 hours. (4) Left ureteral stone: Code(s): N20.1 - Calculus of ureter Status: Acute Assessment and Plan: Patient recently hospitalized for Huge 8.8 x 11.9 x 17 mm proximal left ureteral calculus with severe left pelviectasis and hydronephrosis . Last visit Urology evaluated the patient and placed a left ureteral stent with plans for a lithotripsy outpatient after discharge. Discussed with patient's family who had never heard from scheduling about when this should be. I will consult Urology for further evaluation and monitoring of the patient since it seems she has a recurrent infection which could be from stent placement verses hydronephrosis verses urinary retention versus other Will obtain renal ultrasound for monitoring of her hydronephrosis and stone Will also obtain KUB for stent placement and stone Continue monitoring. Appreciate neurology's input. (5) Altered mental status: Qualifiers: Altered mental status type: unspecified Qualified Code(s): R41.82 - Altered mental status, unspecified Code(s): R41.82 - Altered mental status, unspecified Status: Acute Assessment and Plan: This is my 1st day meeting her but it seems her altered mental status could be improved, she is just very weak and fatigued at this time. Most likely due to underlying UTI (6) Hypovolemia: Code(s): E86.1 - Hypovolemia Status: Acute
[2021-05-03] MEDS: ACETAMINOPHEN 325 MG TABLET 650 MG PO (16:21)
[2021-05-03] MEDS: ERTAPENEM 1 GM/NS 50 ML 1 GM/50 ML BAG IVPB (16:21)
[2021-05-03] MEDS: DEXTROSE 5% 1,000 ML 1,000 ML 50 ML IV CONT (20:02)
[2021-05-03 21:06] LABS: Sodium 146 mmol/L (137-145)
[2021-05-03 21:39] VITALS: BP 114/71; PULSE 77; RESP 16; TEMP 36.9; O2SAT 93
[2021-05-03] MEDS: DONEPEZIL HCL 10 MG TABLET PO (22:30)
[2021-05-04 00:07] VITALS: O2SAT 94
[2021-05-04 04:59] VITALS: BP 128/72; PULSE 59; RESP 14; TEMP 36.6; O2SAT 95
[2021-05-04 05:58] LABS: Albumin Level 2.9 g/dL (3.5-5.1); Anion Gap 5 mmol/L (8-16); Blood Urea Nitrogen 17 mg/dL (7-17); Calcium 8.8 mg/dL (8.4-10.2); Carbon Dioxide 29 mmol/L (22-30); Chloride 107 mmol/L (98-107); Estimated CRCL calculation 40 ml/min; Estimated Glomerular Filt Rate > 60; Glucose 105 mg/dL (65-110); Phosphorus 3.2 mg/dL (2.5-4.5); Sodium 141 mmol/L (137-145)
--- NOTE | 2021-05-04 08:05 | WPDURCON ---
Assessment and Plan Assessment and plan (1) Urinary retention: Code(s): R33.9 - Retention of urine, unspecified Status: Acute Assessment and Plan: It is unclear as to when the rodriguez has been changed last. I would recommend it be changed while in house prior to discharge back to the [place]. (2) Left ureteral stone: Code(s): N20.1 - Calculus of ureter Status: Acute Assessment and Plan: Will plan to schedule left ESWL as an outpatient as previously discussed with her family. Our medical appointment scheduler is out on vacation and has been notified that this will need to be scheduled, however it is not emergent d/t her stent being in place, creatinine is stable, she is afebrile and her WBC is normal. (3) Hydronephrosis: Code(s): N13.30 - Unspecified hydronephrosis Status: Acute Assessment and Plan: mild on US from yesterday, stent in place and draining, this is not of concern. (4) Urinary tract infection: Code(s): N39.0 - Urinary tract infection, site not specified Status: Acute Assessment and Plan: Awaiting culture results, however d/t stent placement I expect her urine to look cloudy and slightly bloody, this is a normal finding. She has a stable WBC and creatinine and is afebrile, I suspect if her culture is negative that her decline may be d/t another source and not UTI. She is urologically stable at this time and there is no further intervention needed. We will proceed with our plan to intervene on her stone as an outpatinet. Urology Consult Note HPI Date Seen: 05/04/21 Requesting Physician: Argenis Medrano PA-C Primary Care Provider: PHYSICIAN NOT ON STAFF Consult Narrative Narrative: Sridevi Mckinney is a 85 year old female who presents to the ER with failure to thrive, general malaise and decline. She is known to our practice from her last hospitalization at the beginning of April when she was found to have a UTI and very large left obstructing UPJ stone measuring 8x8x11.9x17mm. Her stone was discovered on CT scan on 04/12/2021 which also showed bilateral non obstructive stones. Her KUB does show the left UPJ stone when it was done on 04/13/2021. She then went for a cystoscopy, left stent placement and left retrograde pyelogram on 04/14/[address] Robert Alvarez. She was then discharged back to the [place] where she resides to be scheduled as an outpatient or a left ESWL. However, the surgery is still pending and has not been scheduled at this time. In the meantime it is thought that she may have developed a new UTI, although her repeat urine culture on 04/14/2021 was negative after treatment with culture appropriate antibiotics. She is here now and getting Ertapenem which was sensitive on her last culture from 04/12/2021 that grew E-Coli/Proteus. She appears to be more weak and less cognisant than her last hospital visit. Her WBC is stable at 5.7 and creatinine is also stable at 0.70. Her US on 05/03/2021 shows mild left hydronephrosis and left stent placed. Her urine does have leukocytes and RBC's present which I would expect with a stent in place. She is non communicative therefore I am unable to assess her subjective symptoms at this time. Review of Systems Review of Systems: ROS unobtainable: Yes unobtainable due to mental status PMFSH Past Medical History Medical History Anxiety Asthma Dementia Depressive disorder History of seizure History of thyrotoxicosis Hyperlipidemia Hypertension Hypothyroidism Type 2 diabetes mellitus Vitamin D deficiency Surgical History Surgical History Surgical history unknown Family History Family History Other Unknown family medical history Social History Social History Social History: Power of attorn
[2021-05-04] MEDS: ASPIRIN 81 MG ENTERIC TABLET PO (08:12)
[2021-05-04] MEDS: QUEtiapine FUMARATE 12.5 MG TABLET PO ×2 (08:12→16:58)
[2021-05-04] MEDS: TAMSULOSIN HCL 0.4 MG CAPSULE PO (08:12)
[2021-05-04] MEDS: BISACODYL 10 MG SUPPOSITORY RECTAL (08:12)
[2021-05-04] MEDS: DOCUSATE SODIUM 100 MG CAPSULE PO (08:12)
[2021-05-04] MEDS: methiMAzole 10 MG TAB PO (08:12)
[2021-05-04] MEDS: busPIRone HCL 5 MG TABLET PO ×2 (08:12→20:47)
[2021-05-04] MEDS: amLODIPine BESYLATE 2.5 MG TABLET PO (08:12)
[2021-05-04] MEDS: polyethylene glycoL 3350 17 GM POWD.PACK PO (08:12)
[2021-05-04] MEDS: PANTOPRAZOLE SODIUM IV 40 MG VIAL IV PUSH ×2 (08:13→20:47)
[2021-05-04] MEDS: busPIRone HCL 2.5 MG TABLET PO ×2 (08:14→20:47)
--- NOTE | 2021-05-04 09:52 | PCPTNOTE ---
Spoke with PA and RN, patient not appropriate for therapy at this time, please re-order when appropriate.
[2021-05-04 14:10] VITALS: BP 129/66; PULSE 74; RESP 14; TEMP 36.1; O2SAT 91
--- NOTE | 2021-05-04 14:16 | PCOTNOTE ---
Per PT report, patient not appropriate for therapy at this time due to medical condition, please re-order when appropriate.
--- NOTE | 2021-05-04 14:25 | PCNFU ---
Nutrition Follow-Up Complete: Inadequate oral intake related to poor po as evidenced by 0% reported intake. Goal: Meet estimated nutritional needs Pt is not making progress toward goal. No new goal at this time. Pt current nutrition is minced and moist, level 5 with dietary supplement ensure compact BID and frozen nutritional treat once daily with dinner. Last recorded weight is 50 kg. Bowel Motility: No known BM documented. Labs Reviewed: Alb 2.9, K 3.0, BUN 5 Meds Noted: Norvasc, buspar, tapazole, protonix, miralax, seroquel Skin: WNL Additional Notes: Unable to meet with pt. Per EMR, pt ate 5% at breakfast today (05/04). Spoke to nursing who reported that pt is not eating very much but took a few bites of vanilla ice cream last night (05/03). Nursing reports possible d/c to hospice but waiting for the family to make final decision. RDN put in orders for vanilla frozen nutritional treat to be sent once a day with dinner to encourage intake. The frozen nutritional treat will provide 300kcal and 9g of protein. Will follow in 3 days.
[2021-05-04 14:32] LABS: Potassium 3.8 mmol/L (3.4-5.0); Sodium 138 mmol/L (137-145)
--- NOTE | 2021-05-04 14:34 | PM.IMPN ---
Progress Note: A&P Assessment and Plan (1) Sepsis: Code(s): A41.9 - Sepsis, unspecified organism Status: Acute Assessment and Plan: The patient is an 85 year old woman who lives at [facility], with a history of dementia, hypertension, who presented to the emergency room with decreased oral intake and generalized weakness over the last 2 days. Initial vitals showed blood pressure 132/93, tachycardia of 102 beats per minute, afebrile, normal oxygenation on room air. Elevated white blood cell count [id number] with elevated neutrophils at 79%, normal H&H, hypernatremia at 163 and chloride 121 with PINEDA have a creatinine 1.2, BUN 32 showing severe dehydration. Lactic normal at 1.9. Normal LFTs. CT head showed no acute intracranial findings, chronic age-related findings. Chest x-ray shows no acute cardiopulmonary findings. Patient was admitted into the hospital meeting criteria for sepsis with tachycardia, leukocytosis with elevated neutrophil count, PINEDA, metabolic encephalopathy in the setting of a urinary tract infection. Patient was started on IV ertapenem due to recent urinalysis showing positive for E coli and Proteus mirabilis and sensitivities for ertapenem. Urinalysis checked 05/03/21 since one was not taken on admission 05/01/21 which shows turbid urine, 3+ leukocyte esterase, WBCs greater than 75, WBC clumps present. Continue IV Ertapenem until Cultures return. Patient received IV normal saline which corrected her sodium too fast so was switched to D5W. Sodium has been normal this morning at 140. Will discontinue IV fluids at this time. Creatinine is improved from 0.9 to 0.7 with normal BUN Patient is still not eating and drinking very much only about 5-10% of her meals. Could be due to underlying urinary tract infection vs possible pain due to kidney stone vs deconditioning Discussed with the patient's power of banking attorney Porter about the patient's condition, future outlook with re-admissions if she is not eating and drinking and recurrence of dehydration. Her having undergo further procedures and a frail and weak state which includes EWSL for huge kidney stone . Porter says he is sick himself getting over pneumonia and it is hard for him to get up to the hospital to see the patient. I discussed possibility of Hospice care and Porter would like for Hospice to call him to get more information. Currently her labs are all stable. Continue monitoring. Appreciate urology is input. (2) Acute UTI: Code(s): N39.0 - Urinary tract infection, site not specified Status: Acute Assessment and Plan: See above. (3) Hypernatremia: Code(s): E87.0 - Hyperosmolality and hypernatremia Status: Acute Assessment and Plan: Normal at this time. Will recheck in the morning. (4) Left ureteral stone: Code(s): N20.1 - Calculus of ureter Status: Acute Assessment and Plan: Patient recently hospitalized for Huge 8.8 x 11.9 x 17 mm proximal left ureteral calculus with severe left pelviectasis and hydronephrosis . Last visit Urology evaluated the patient and placed a left ureteral stent with plans for a lithotripsy outpatient after discharge. Urology evaluated the patient and has plans for outpatient scheduling once acute UTI infection is treated. Patient did have urinary retention retaining over 500 cc and Contreras was placed and urology states she can be discharged with Contreras. Renal ultrasound showed improvement of hydronephrosis from 04/12/21 when it was severe to now mild. US showed left internal ureteral stent in place. Nonobstructing 8 mm right renal stone Continue monitoring. Appreciate neurology's input. (5) Altered mental status: Qualifiers: Altered mental status type: un
[2021-05-04] MEDS: ERTAPENEM 1 GM/NS 50 ML 1 GM/50 ML BAG IVPB (16:58)
[2021-05-04] MEDS: DONEPEZIL HCL 10 MG TABLET PO (20:47)
[2021-05-04 21:10] VITALS: BP 136/82; PULSE 79; RESP 18; TEMP 36.4; O2SAT 99
[2021-05-05 06:00] VITALS: BP 121/69; PULSE 80; RESP 14; TEMP 36.5; O2SAT 98
[2021-05-05 07:23] LABS: Basophils Percent Auto 0.3 % (0.2-1.2); Eosinophils Absolute Auto 0.2 K/mm3 (0-0.3); Eosinophils Percent Auto 2.1 % (0-4.4); Hemoglobin 13.2 g/dL (12.0-15.0); Immature Granulocyte Absolute 0.03 K/mm3 (0.00-0.031); Immature Granulocyte Percent A 0.4 % (0-0.5); Lymphocytes Absolute Auto 1.21 K/mm3 (0.9-3.2); Lymphocytes Percent Auto 16.1 % (18.3-44.2); Mean Corpuscular HGB Conc 31.4 g/dl (32-36); Mean Corpuscular Hemoglobin 27.3 pg (26-34); Monocytes Absolute Auto 0.4 K/mm3 (0.1-0.6); Monocytes Percent Auto 4.8 % (2.6-8.5); Neutrophils Absolute Auto 5.7 K/mm3 (1.3-6.7); Neutrophils Percent Auto 76.3 % (45.5-73.1); Platelet Count Result 214 k/mm3 (150-375); Red Blood Count 4.83 M/mm3 (4.2-5.4); Red Cell Distribution Width 14.7 % (11.5-14.5); White Blood Count 7.5 K/mm3 (4.5-10.0)
[2021-05-05 07:36] LABS: Anion Gap 3 mmol/L (8-16); Blood Urea Nitrogen 15 mg/dL (7-17); Carbon Dioxide 32 mmol/L (22-30); Chloride 107 mmol/L (98-107); Estimated CRCL calculation 40 ml/min; Estimated Glomerular Filt Rate > 60; Glucose 92 mg/dL (65-110); Magnesium 1.9 mg/dL (1.6-2.3); Potassium 3.6 mmol/L (3.4-5.0); Sodium 142 mmol/L (137-145)
[2021-05-05] MEDS: methiMAzole 10 MG TAB PO (09:07)
[2021-05-05] MEDS: ASPIRIN 81 MG ENTERIC TABLET PO (09:07)
[2021-05-05] MEDS: QUEtiapine FUMARATE 12.5 MG TABLET PO ×2 (09:07→18:00)
[2021-05-05] MEDS: polyethylene glycoL 3350 17 GM POWD.PACK PO (09:07)
[2021-05-05] MEDS: busPIRone HCL 2.5 MG TABLET PO ×2 (09:07→22:51)
[2021-05-05] MEDS: busPIRone HCL 5 MG TABLET PO ×2 (09:07→22:51)
[2021-05-05] MEDS: PANTOPRAZOLE SODIUM IV 40 MG VIAL IV PUSH ×2 (10:55→22:51)
--- NOTE | 2021-05-05 12:51 | PM.IMPN ---
Progress Note: A&P Assessment and Plan (1) Sepsis: Code(s): A41.9 - Sepsis, unspecified organism Status: Acute Assessment and Plan: The patient is an 85 year old woman who lives at [facility], with a history of dementia, hypertension, who presented to the emergency room with decreased oral intake and generalized weakness over the last 2 days. Initial vitals showed blood pressure 132/93, tachycardia of 102 beats per minute, afebrile, normal oxygenation on room air. Elevated white blood cell count [id number] with elevated neutrophils at 79%, normal H&H, hypernatremia at 163 and chloride 121 with PINEDA have a creatinine 1.2, BUN 32 showing severe dehydration. Lactic normal at 1.9. Normal LFTs. CT head showed no acute intracranial findings, chronic age-related findings. Chest x-ray shows no acute cardiopulmonary findings. Patient was admitted into the hospital meeting criteria for sepsis with tachycardia, leukocytosis with elevated neutrophil count, PINEDA, metabolic encephalopathy in the setting of a urinary tract infection. Patient was started on IV ertapenem due to recent urinalysis showing positive for E coli and Proteus mirabilis and sensitivities for ertapenem. Urinalysis checked 05/03/21 since one was not taken on admission 05/01/21 which shows turbid urine, 3+ leukocyte esterase, WBCs greater than 75, WBC clumps present. With culture growing ESBL with sensitivities to Ertapenem. Continue IV Ertapenem #5 Patient received IV normal saline which corrected her sodium too fast so was switched to D5W. Sodium has been normal this morning at 142. Creatinine is stable 0.7 with normal BUN Patient is still not eating and drinking very much only about 5-10% of her meals. Could be due to underlying urinary tract infection vs possible pain due to kidney stone vs deconditioning,. Will restart IV Fluids at 50 cc/hr Discussed with the patient's power of managing attorney Porter about the patient's condition, future outlook with re-admissions if she is not eating and drinking and recurrence of dehydration. Her having undergo further procedures and a frail and weak state which includes EWSL for huge kidney stone . Porter says he is sick himself getting over pneumonia and it is hard for him to get up to the hospital to see the patient. I discussed possibility of Hospice care and Porter talked with [facility] and has signed paperwork that once she is discharged Pal will come to [facility] to take over. Currently her labs are all stable. Continue monitoring. Appreciate urology is input. (2) Acute UTI: Code(s): N39.0 - Urinary tract infection, site not specified Status: Acute Assessment and Plan: See above. (3) Hypernatremia: Code(s): E87.0 - Hyperosmolality and hypernatremia Status: Acute Assessment and Plan: Normal at this time. Will recheck in the morning. (4) Left ureteral stone: Code(s): N20.1 - Calculus of ureter Status: Acute Assessment and Plan: Patient recently hospitalized for Huge 8.8 x 11.9 x 17 mm proximal left ureteral calculus with severe left pelviectasis and hydronephrosis . Last visit Urology evaluated the patient and placed a left ureteral stent with plans for a lithotripsy outpatient after discharge. Urology evaluated the patient and has plans for outpatient scheduling once acute UTI infection is treated. Patient did have urinary retention retaining over 500 cc and Contreras was placed and urology states she can be discharged with Contreras. Renal ultrasound showed improvement of hydronephrosis from 04/12/21 when it was severe to now mild. US showed left internal ureteral stent in place. Nonobstructing 8 mm right renal stone (5) Altered mental status: Qualifiers
[2021-05-05 14:00] VITALS: BP 129/87; PULSE 87; RESP 14; TEMP 36.7; O2SAT 95
[2021-05-05] MEDS: LACTATED RINGERS 1,000 ML 50 ML IV CONT (14:15)
[2021-05-05] MEDS: ERTAPENEM 1 GM/NS 50 ML 1 GM/50 ML BAG IVPB (15:57)
[2021-05-05 19:56] VITALS: PULSE 81; RESP 16; O2SAT 95
[2021-05-05 22:00] VITALS: BP 135/78; PULSE 93; RESP 20; TEMP 36.7; O2SAT 92
[2021-05-05] MEDS: DONEPEZIL HCL 10 MG TABLET PO (22:51)
[2021-05-06 06:00] VITALS: BP 146/79; PULSE 74; RESP 20; TEMP 36.6; O2SAT 93
[2021-05-06] MEDS: busPIRone HCL 2.5 MG TABLET PO ×2 (08:50→20:00)
[2021-05-06] MEDS: methiMAzole 10 MG TAB PO (08:50)
[2021-05-06] MEDS: busPIRone HCL 5 MG TABLET PO ×2 (08:50→20:00)
[2021-05-06] MEDS: polyethylene glycoL 3350 17 GM POWD.PACK PO (08:51)
[2021-05-06] MEDS: ASPIRIN 81 MG ENTERIC TABLET PO (08:51)
[2021-05-06] MEDS: PANTOPRAZOLE SODIUM IV 40 MG VIAL IV PUSH ×2 (08:51→20:00)
[2021-05-06] MEDS: LACTATED RINGERS 1,000 ML 50 ML IV CONT (08:51)
[2021-05-06] MEDS: QUEtiapine FUMARATE 12.5 MG TABLET PO ×2 (08:51→17:12)
--- NOTE | 2021-05-06 12:40 | PC.NURSE ---
call to pharm for mineral oil for enema
--- NOTE | 2021-05-06 14:24 | PM.IMPN ---
Progress Note: A&P Assessment and Plan (1) Fecal impaction: Code(s): K56.41 - Fecal impaction Status: Acute Assessment and Plan: On 04/12/2021 the patient was found to have a rectosigmoid fecal impaction on CT scan. During this hospitalization it does not seem like any treatment was done to take care of her fecal impaction. Patient had multiple stools yesterday but KUB this morning showed Slight improvement of fecal impaction Will do another enema She will be going hospice once discharged to [facility], will resolve fecal impaction first. (2) Sepsis: Code(s): A41.9 - Sepsis, unspecified organism Status: Acute Assessment and Plan: The patient is an 85 year old woman who lives at [facility], with a history of dementia, hypertension, who presented to the emergency room with decreased oral intake and generalized weakness over the last 2 days. Initial vitals showed blood pressure 132/93, tachycardia of 102 beats per minute, afebrile, normal oxygenation on room air. Elevated white blood cell count [id number] with elevated neutrophils at 79%, normal H&H, hypernatremia at 163 and chloride 121 with PINEDA have a creatinine 1.2, BUN 32 showing severe dehydration. Lactic normal at 1.9. Normal LFTs. CT head showed no acute intracranial findings, chronic age-related findings. Chest x-ray shows no acute cardiopulmonary findings. Patient was admitted into the hospital meeting criteria for sepsis with tachycardia, leukocytosis with elevated neutrophil count, PINEDA, metabolic encephalopathy in the setting of a urinary tract infection. Patient was started on IV ertapenem due to recent urinalysis showing positive for E coli and Proteus mirabilis and sensitivities for ertapenem. Urinalysis checked 05/03/21 since one was not taken on admission 05/01/21 which shows turbid urine, 3+ leukocyte esterase, WBCs greater than 75, WBC clumps present. With culture growing ESBL with sensitivities to Ertapenem. Continue IV Ertapenem #6 Patient received IV normal saline which corrected her sodium too fast so was switched to D5W. Sodium has been normal this morning at 142. Creatinine is stable 0.7 with normal BUN Patient is still not eating and drinking very much only about 5-10% of her meals. Could be due to underlying urinary tract infection vs possible pain due to kidney stone vs deconditioning,. Continue IV Fluids at 50 cc/hr Discussed with the patient's power of managing attorney Porter about the patient's condition, future outlook with re-admissions if she is not eating and drinking and recurrence of dehydration. Her having undergo further procedures and a frail and weak state which includes EWSL for huge kidney stone . Porter says he is sick himself getting over pneumonia and it is hard for him to get up to the hospital to see the patient. I discussed possibility of Hospice care and Porter talked with [facility] and has signed paperwork that once she is discharged Pal will come to [facility] to take over. Currently her labs are all stable. Continue monitoring. Appreciate urology is input. (3) Acute UTI: Code(s): N39.0 - Urinary tract infection, site not specified Status: Acute Assessment and Plan: See above. (4) Hypernatremia: Code(s): E87.0 - Hyperosmolality and hypernatremia Status: Acute Assessment and Plan: Normal at this time. Will recheck in the morning. (5) Left ureteral stone: Code(s): N20.1 - Calculus of ureter Status: Acute Assessment and Plan: Patient recently hospitalized for Huge 8.8 x 11.9 x 17 mm proximal left ureteral calculus with severe left pelviectasis and hydronephrosis . Last visit Urology evaluated the patient and placed a left ureteral s
[2021-05-06 14:30] VITALS: BP 118/65; PULSE 79; RESP 16; TEMP 36.3; O2SAT 94
[2021-05-06] MEDS: ERTAPENEM 1 GM/NS 50 ML 1 GM/50 ML BAG IVPB (17:13)
[2021-05-06] MEDS: DONEPEZIL HCL 10 MG TABLET PO (20:00)
[2021-05-06 21:35] VITALS: BP 127/74; PULSE 85; RESP 20; TEMP 36.6; O2SAT 92
[2021-05-07] MEDS: LACTATED RINGERS 1,000 ML 50 ML IV CONT (04:20)
[2021-05-07] MEDS: ASPIRIN 81 MG ENTERIC TABLET PO (08:45)
[2021-05-07] MEDS: busPIRone HCL 5 MG TABLET PO (08:45)
[2021-05-07] MEDS: QUEtiapine FUMARATE 12.5 MG TABLET PO (08:45)
[2021-05-07] MEDS: busPIRone HCL 2.5 MG TABLET PO (08:45)
[2021-05-07] MEDS: PANTOPRAZOLE SODIUM IV 40 MG VIAL IV PUSH (08:46)
[2021-05-07] MEDS: polyethylene glycoL 3350 17 GM POWD.PACK PO (08:46)
[2021-05-07] MEDS: methiMAzole 10 MG TAB PO (08:46)
[2021-05-07] MEDS: MAGNESIUM CITRATE 300 ML BTL 150 ML PO (09:50)
--- NOTE | 2021-05-07 10:33 | PCNFU ---
Nutrition Follow-Up Complete: Inadequate oral intake related to poor po as evidenced by 0% reported intake. Goal: Meet estimated nutritional needs Pt current nutrition is minced and moist level 5 with dietary supplement ensure compact BID and frozen nutritional treat once daily. Last recorded weight is 50 kg. Bowel Motility: no recent BM reported Labs Reviewed: Alb 2.9, K 3.0, BUN 15 Meds Noted: buspar, tapazole, protonix, miralax, seroquel Skin: WNL Additional Notes: Spoke with nursing who reports that pt is being d/c to hospice.
[2021-05-07 14:00] VITALS: BP 138/68; PULSE 73; RESP 17; TEMP 36.2; O2SAT 100
--- NOTE | 2021-05-07 14:08 | PM.DS ---
DS: Admitting Diagnosis Discharge Date 05/07/21 Admitting Diagnosis Weakness DS: Discharge Diagnosis Discharge Diagnosis (1) Sepsis: Code(s): A41.9 - Sepsis, unspecified organism Status: Acute Assessment and Plan: The patient is an 85 year old woman who lives at [facility], with a history of dementia, hypertension, who presented to the emergency room with decreased oral intake and generalized weakness over the last 2 days. Initial vitals showed blood pressure 132/93, tachycardia of 102 beats per minute, afebrile, normal oxygenation on room air. Elevated white blood cell count 10556 with elevated neutrophils at 79%, normal H&H, hypernatremia at 163 and chloride 121 with PINEDA have a creatinine 1.2, BUN 32 showing severe dehydration. Lactic normal at 1.9. Normal LFTs. CT head showed no acute intracranial findings, chronic age-related findings. Chest x-ray shows no acute cardiopulmonary findings. Patient was admitted into the hospital meeting criteria for sepsis with tachycardia, leukocytosis with elevated neutrophil count, PINEDA, metabolic encephalopathy in the setting of a urinary tract infection. Patient was started on IV ertapenem due to recent urinalysis showing positive for E coli and Proteus mirabilis and sensitivities for ertapenem. Urinalysis checked 05/03/21 since one was not taken on admission 05/01/21 which shows turbid urine, 3+ leukocyte esterase, WBCs greater than 75, WBC clumps present. With culture growing ESBL with sensitivities to Ertapenem. Continue IV Ertapenem #7, completed treatment. No more antibiotics needed at this time. Patient is still not eating and drinking very much only about 5-10% of her meals. Could be due to underlying urinary tract infection vs possible pain due to kidney stone vs deconditioning. I have had her on IV Fluids at 50 cc/hr and she appears hydrated intravascularly. Stable BP Discussed with the patient's power of trade mark attorney Porter about the patient's condition, future outlook with re-admissions if she is not eating and drinking and recurrence of dehydration. Her having undergo further procedures and a frail and weak state which includes EWSL for huge kidney stone . Porter says he is sick himself getting over pneumonia and it is hard for him to get up to the hospital to see the patient. I discussed possibility of Hospice care and Porter talked with [facility] and has signed paperwork that once she is discharged Pal will come to [facility] to take over. Currently her labs are all stable and [facility]. (2) Fecal impaction: Code(s): K56.41 - Fecal impaction Status: Acute Assessment and Plan: On 04/12/2021 the patient was found to have a rectosigmoid fecal impaction on CT scan. During this hospitalization it does not seem like any treatment was done to take care of her fecal impaction. Patient had multiple stools and KUB shows slight improvement. Patient otherwise doing well, no complaints of pain at this time. I have tried a total of 4 enemas, manual disimpaction, Miralax, Mag Citrate (which she would not drink). I feel at this time further enemas or needing GI support with fecal impaction would cause the patient more harm/discomfort. I discussed this with Porter her POA and feels comfortable with discharge back to the facility with Miralax and Colace stool softener. I also discussed this with my Attending Physician Dr. Farrell who agrees with the plan. She will be going hosp[facility] (3) Acute UTI: Code(s): N39.0 - Urinary tract infection, site not specified Status: Acute Assessment and Plan: See above. (4) Hypernatremia: Code(s): E87.0 - Hyperosmolality and hypernatremia
[2021-05-07] MEDS: ERTAPENEM 1 GM/NS 50 ML 1 GM/50 ML BAG IVPB (14:20)
[2021-05-07 14:52] LABS: EDCOVIDSCREEN Negative (Negative)
== END 2021-05-07 16:51 | disposition hospice, inpatient (51) | DRG 871 ==
LOC: ANHED 22:40 → ANH2MED 23:57
PROVIDERS: Internal Medicine; Physician Assistant; Admitting Provider Internal Medicine; Emergency Provider Emergency Medicine; Visit Provider Family Medicine
DX: A41.9 Sepsis, unspecified organism (principal); G93.41 Metabolic encephalopathy; N39.0 Urinary tract infection, site not specified; N17.9 Acute kidney failure, unspecified; E87.1 Hypo-osmolality and hyponatremia; E86.1 Hypovolemia; Z20.822 Contact with and (suspected) exposure to COVID-19; R62.7 Adult failure to thrive; Z68.20 Body mass index [BMI] 20.0-20.9, adult; F41.9 Anxiety disorder, unspecified; J45.909 Unspecified asthma, uncomplicated; F03.90 Unspecified dementia, unspecified severity, without behavioral disturbance, psychotic disturbance, mood disturbance, and anxiety; F32.A Depression, unspecified; E78.5 Hyperlipidemia, unspecified; I10 Essential (primary) hypertension; E03.9 Hypothyroidism, unspecified; E11.9 Type 2 diabetes mellitus without complications; E55.9 Vitamin D deficiency, unspecified; E07.9 Disorder of thyroid, unspecified; I71.4 Abdominal aortic aneurysm, without rupture; E27.8 Other specified disorders of adrenal gland; K56.41 Fecal impaction
CPT/HCPCS: 36415; 70450; 71046; 74018; 76775; 80048; 80053; 80069; 81001; 83605; 83735; 84132; 84295; 85025; 85027; 87077; 87086; 87088; 87186; 87426; 93005; 96361; 96365; 96366; 96367; 99285; A9270; C9113; C9803; G0378; J0131; J1335; J3480; J7030; J7040; J7070; J7120